=== PATIENT | male | born 1955 | race Two or more races ===

== ENCOUNTER 2016-08-30 16:50 | Inpatient (IN) | payer MEDICAID, OTHER ==
[~2016-08-30] VITALS: Ht 165.1 cm; Wt 68.0 kg
[2016-08-30 17:02] VITALS: BP 134/106
[2016-08-30] MEDS ORDERED: Morphine Sulfate 4mg/ml Inj IVP ONE (17:15)
[2016-08-30] MEDS ORDERED: AMLODIPINE BESY10 MG ORAL (17:25)
[2016-08-30] MEDS ORDERED: ASPIR 8181 MG ORAL (17:26)
[2016-08-30] MEDS ORDERED: BRIMONIDINE TART5 ML BOTH EYES (17:26)
[2016-08-30] MEDS ORDERED: CYCLOSPORINE25 MG PO (17:27)
[2016-08-30] MEDS ORDERED: FERROUS SULFAT325 MG ORAL (17:27)
[2016-08-30] MEDS ORDERED: HUMALOG100 UNIT/3 SUBQ (17:28)
[2016-08-30] MEDS ORDERED: GABAPENTIN300 MG ORAL (17:28)
[2016-08-30] MEDS ORDERED: LANTUS SOL100 UNIT/1 SUBQ (17:29)
[2016-08-30] MEDS ORDERED: NORCO 5-325 TA1 EAC1 ORAL (17:29)
[2016-08-30] MEDS ORDERED: LATANOPROST2.5 ML BOTH EYES (17:30)
[2016-08-30] MEDS ORDERED: MYCOPHENOLATE250 MG PO (17:31)
[2016-08-30] MEDS ORDERED: OMEPRAZOLE20 M2 ORAL (17:31)
[2016-08-30] MEDS ORDERED: POTASSIUM CHLO20 ME2 ORAL (17:32)
[2016-08-30] MEDS ORDERED: PRAVASTATIN SOD10 M1 ORAL (17:33)
[2016-08-30 17:46] LABS: BASOPHILS % (AUTO) 0.3 % (0.0-2.0); EOSINOPHILS % (AUTO) 0.2 % (0.0-3.0); MEAN CORPUSCULAR HEMOGLOBIN 33.4 PG (27.0-31.0); MEAN CORPUSCULAR HGB CONC 37.1 G/DL (32.0-36.0); MEAN CORPUSCULAR VOLUME 90 FL (80-99); MEAN PLATELET VOLUME 6.5 FL (6.5-10.1); MONOCYTES % (AUTO) 7.3 % (1.0-10.0); NEUTROPHILS % (AUTO) 77.2 % (45.0-75.0); PLATELET COUNT 246 K/UL (150-450); RED BLOOD COUNT 3.45 M/UL (4.70-6.10); RED CELL DISTRIBUTION WIDTH 9.1 % (11.6-14.8); WHITE BLOOD COUNT 4.8 K/UL (4.8-10.8)
[2016-08-30] MEDS ORDERED: VITAMIN D1000 UNI1 ORAL (17:49)
[2016-08-30] MEDS ORDERED: PREDNISONE5 M4 PO (17:49)
[2016-08-30] MEDS ORDERED: PAROXETINE HCL20 MG PO (17:50)
[2016-08-30] MEDS ORDERED: QUINAPRIL HCL20 MG PO (17:50)
[2016-08-30] MEDS ORDERED: MURO RIGHT EYE (17:51)
[2016-08-30 17:56] LABS: TROPONIN I < 0.30 ng/mL (<=0.30)
[2016-08-30 18:00] LABS: ALANINE AMINOTRANSFERASE 9 U/L (3-41); ALBUMIN/GLOBULIN RATIO 1.2 (1.0-2.7); ANION GAP 21 (5-15); ASPARTATE AMINO TRANSFERASE 15 U/L (5-40); CALCIUM 8.4 mg/dL (8.6-10.2); CARBON DIOXIDE 19 mEQ/L (20-30); CHLORIDE 68 mEQ/L (98-107); CREATININE 0.9 mg/dL (0.7-1.2); GLOMERULAR FILTRATION RATE > 60 mL/min (>60); HEMOLYSIS 12; LIPASE 39 U/L (< 60); POTASSIUM 3.8 mEQ/L (3.4-4.9)
[2016-08-30 18:03] LABS: SODIUM 108 mEQ/L (135-145)
[2016-08-30] MEDS ORDERED: NaCl 3% 500ml 250 ML IVPB ONE (18:15)
[2016-08-30 18:17] LABS: BILIRUBIN,DIRECT 0.4 mg/dL (0.1-0.3)
[2016-08-30 18:20] LABS: INR 1.1 (0.9-1.1); PROTHROMBIN TIME 10.7 SEC (9.30-11.50)
[2016-08-30 21:00] VITALS: BP 156/84
[2016-08-30] MEDS ORDERED: Ketorolac 30mg Inj IV PRN (21:30)
[2016-08-30] MEDS ORDERED: Mylanta II UD 30ml ORAL PRN (21:30)
[2016-08-30] MEDS ORDERED: Nitroglycerin Subl 0.4mg tab (Bottle Of 25) SL PRN (21:30)
[2016-08-30] MEDS ORDERED: Miralax 17gm pkt ORAL PRN (21:30)
[2016-08-30] MEDS ORDERED: DuoNeb 0.5-3(2.5)mg/3ml neb HHN PRN (21:30)
[2016-08-30] MEDS: Morphine Sulfate 2mg/ml Inj IVP PRN (22:02)
[2016-08-30 22:53] LABS: APPEARANCE,URINE CLEAR; KETONES,URINE NEGATIVE (NEGATIVE); LEUKOCYTE ESTERASE ,URINE NEGATIVE (NEGATIVE); NITRITE,URINE NEGATIVE (NEGATIVE); PH,URINE 7 (4.5-8.0); PROTEIN,URINE NEGATIVE (NEGATIVE); UROBILINOGEN,URINE NORMAL MG/DL (0.0-1.0)
[2016-08-30 23:03] LABS: BACTERIA,URINE FEW /HPF; WBC,URINE 0-2 /HPF (0 - 0)
[2016-08-31] VITALS: BP 150/77
[2016-08-31] MEDS: NovoLOG Insulin Flexpen SUBQ SCH ×4 (06:30→21:32)
--- NOTE | 2016-08-31 07:17 | Emergency Room Report ---
History of Present Illness General Chief Complaint: Nausea, Vomiting, and Diarrhea Source: Patient, EMS Present Illness HPI Patient presents with 4 days of vomiting and diarrhea. He states he is able to take his meds. He denies any hematemesis or coffee-ground. He also denies melena. The diarrhea has been watery. He does have abdominal cramping but it' s not that severe. He more complains about nausea. He also feels weakness. Denies any chest pain, cough, sore throat. There no skin rashes. Denies any extremity pain. The weakness is diffuse. s/p renal transplant 2004. The transplant is not tender. Diabetic. Not know how sugars have been. Allergies: Coded Allergies: No Known Allergies (Unverified , 08/30/16) Patient History Past Medical History: see triage record Past Surgical History: other - renal transplant Social History Narrative Reviewed Nursing Documentation: PMH: Agreed, PSxH: Agreed Nursing Documentation-PMH Past Medical History: No History, Except For Hx Cardiac Problems: Yes Hx Hypertension: Yes Hx Pacemaker: No - BLINDNESS Hx Diabetes: Yes - KIDNEY TRANPLANT Review of Systems All Other Systems: negative except mentioned in HPI Physical Exam Vital Signs Date Time Temp Pulse Resp B/P Pulse Ox O2 Delivery O2 Flow Rate FiO2 08/30/16 16:43 98.8 82 20 183/89 98 Room Air 08/30/16 21:00 2.0 Sp02 EP Interpretation: reviewed, normal General Appearance: well appearing, no apparent distress, GCS 15 Head: normocephalic Eyes: bilateral eye PERRL, bilateral eye normal inspection ENT: moist mucus membranes Neck: supple Respiratory: lungs clear, normal breath sounds Cardiovascular #1: regular rate, rhythm Cardiovascular #2: 1+ radial (R) - possible prior surgery, 2+ radial (L) Gastrointestinal: normal inspection, normal bowel sounds, non tender, no mass, non-distended, other - transplant not tender Musculoskeletal: back normal, gait/station normal, normal range of motion Neurologic: alert, oriented x3, motor strength/tone normal, DTRs symmetric, sensory intact, speech normal Psychiatric: mood/affect normal Skin: warm/dry, other - plethoric Medical Decision Making Diagnostic Impression: Primary Impression: Hyponatremia Additional Impression: Nausea, vomiting, and diarrhea ER Course Patient presents with nausea vomiting and diarrhea. His history of renal transplant. This is a serious and complicated patient. Symptoms are consistent with gastroenteritis, kidney rejection, acute renal failure, C. difficile colitis amongst others. Patient will be evaluated with CBC, electrolytes, EKG, chest x-ray. The patient will be seeing IV hydration and Zofran. Abdomen significant for profound hyponatremia. Renal function is normal. Due to severity of hyponatremia - 3% NS begun. Patient improved with treatment. A urine sodium was sent. Possible etiologies include diarrhea, syndrome of inappropriate ADH secretion lungs others. Admit telemetry Dr. Charles. Laboratory Tests Test 08/30/16 17:00 08/30/16 20:35 08/31/16 06:25 White Blood Count 4.8 K/UL (4.8-10.8) Pending Red Blood Count 3.45 M/UL (4.70-6.10) L Pending Hemoglobin 11.5 G/DL (14.2-18.0) L Pending Hematocrit 31.0 % (42.0-52.0) L Pending Mean Corpuscular Volume 90 FL (80-99) Pending Mean Corpuscular Hemoglobin 33.4 PG (27.0-31.0) H Pending Mean Corpuscular Hemoglobin Concent 37.1 G/DL (32.0-36.0) H Pending Red Cell Distribution Width 9.1 % (11.6-14.8) L Pending Platelet Count 246 K/UL (150-450) Pending Mean Platelet Volume 6.5 FL (6.5-10.1) Pending Neutrophils (%) (Auto) 77.2 % (45.0-75.0) H Pending Lymphocytes (%) (Auto) 15.0 % (20.0-45.0) L Pending Monocytes (%) (Auto) 7.3 % (1.0-10.0) Pending Eosinophils (%) (Auto) 0.2 % (0.0-3.0) Pending Basophils (%) (Auto) 0.3 % (0.0-2.0) Pending Prothrombin Time 10.7 SEC (9.30-11.50) Prothrombin Time INR 1.1 (0.9-1.1) PTT 31 SEC (23-33) Sodium Level 108 mEQ/L (135-145) *L Pending Potassium Level 3.8 mEQ/L (3.4-4.9) Pending Chloride Level 68 mEQ/L (98-107) L Pending Carbon Dioxide Level 19 mEQ/L (20-30) L Pending Anion Gap 21 (5-15) H Blood Urea Nitrogen 15 mg/dL (7-23) Pending Creatinine 0.9 mg/dL (0.7-1.2) Pending Estimate Glomerular Filtration Rate > 60 mL/min (>60) Pending Glucose Level 126 mg/dL (74-106) H Pending Lactic Acid Level 1.50 mmol/L (0.66-2.22) Calcium Level 8.4 mg/dL (8.6-10.2) L Pending Total Bilirubin 1.5 mg/dL (0.0-1.2) H Pending Direct Bilirubin 0.4 mg/dL (0.1-0.3) H Aspartate Amino Transferase (AST) 15 U/L (5-40) Pending Alanine Aminotransferase (ALT) 9 U/L (3-41) Pending Alkaline Phosphatase 59 U/L (40-129) Pending Total Creatine Kinase 238 U/L (38-174) H Troponin I < 0.30 ng/mL (<=0.30) Total Protein 7.0 g/dL (6.6-8.7) Pending Albumin 3.9 g/dL (3.5-5.2) Pending Globulin 3.1 g/dL Pending Albumin/Globulin Ratio 1.2 (1.0-2.7) Lipase 39 U/L (< 60) Urine Color Pale yellow Urine Appearance Clear Urine pH 7 (4.5-8.0) Urine Specific [place] 1.005 (1.005-1.035) Urine Protein Negative (NEGATIVE) Urine Glucose (UA) Negative (NEGATIVE) Urine Ketones Negative (NEGATIVE) Urine Occult Blood 1+ (NEGATIVE) H Urine Nitrite Negative (NEGATIVE) Urine Bilirubin Negative (NEGATIVE) Urine Urobilinogen Normal MG/DL (0.0-1.0) Urine Leukocyte Esterase Negative (NEGATIVE) Urine RBC 2-4 /HPF (0 - 0) H Urine WBC 0-2 /HPF (0 - 0) Urine Squamous Epithelial Cells None /LPF (NONE/OCC) Urine Bacteria Few /HPF (NONE) Hemoglobin A1c Pending Triglycerides Level Pending Cholesterol Level Pending LDL Cholesterol Pending HDL Cholesterol Pending Cholesterol/HDL Ratio Pending Thyroid Stimulating Hormone (TSH) Pending EKG Diagnostic Results Rate: normal Rhythm: NSR ST Segments: no acute changes - prolonged QT Rhythm Strip Diag. Results EP Interpretation: yes Rhythm: NSR, no PVC's, no ectopy Chest X-Ray Diagnostic Results EP Interpretation: Yes Findings: no consolidation, no effusion, no pneumothorax, no acute cardiopulmonary disease Number of Views: 1 Other X-Ray Diagnostic Results Other X-Ray Diagnostic Results : X-Ray Ordered: abd EP Interpretation: Yes Findings: other - no mass, SBO or abnormal calcifications. L hip replacement and clips Number of Views: 2 CT/MRI/US Diagnostic Results CT/MRI/US Diagnostic Results : Imaging Test Ordered: abd pelvis Impression Impression: Distended gallbladder. No definite gallstones or wall thickening. Consider ultrasound for further evaluation if indicated Dilated common bile duct. No definite downstream obstructive lesion. Nonetheless, correlation with liver function tests is recommended, consideration for MRCP if clinically indicated. Right pelvic transplant kidney, unremarkable. Atrophic [place] kidneys with multiple cysts Irregular 12 mm right basilar pulmonary parenchymal opacity, likely an area of scarring but neoplasm not excludable. Recommend followup CT in 6 months Distended bladder Mild cardiomegaly L1 wedge deformity, may be developmental or due to compression fracture of the latter, age indeterminate. Consider MRI this is considered clinically relevant Small to moderate-sized sliding-type hiatal hernia Other findings as noted, including old healed left pelvic fracture deformities, left hip surgical hardware, old healed bilateral rib fractures Last Vital Signs Date Time Temp Pulse Resp B/P Pulse Ox O2 Delivery O2 Flow Rate FiO2 08/31/16 05:44 169/93 08/31/16 04:00 82 08/31/16 00:00 97.2 20 98 Room Air 08/30/16 21:02 2.0 Status: improved Disposition: ADMITTED INPATIENT Condition: Serious Referrals: [facility] (PCP) Mor Aly M.D. Aug 31, 2016 07:17
[2016-08-31 07:32] LABS: BASOPHILS % (AUTO) 0.5 % (0.0-2.0); EOSINOPHILS % (AUTO) 0.8 % (0.0-3.0); LYMPHOCYTES % (AUTO) 14.8 % (20.0-45.0); MEAN CORPUSCULAR HEMOGLOBIN 33.4 PG (27.0-31.0); MEAN CORPUSCULAR HGB CONC 36.7 G/DL (32.0-36.0); MEAN CORPUSCULAR VOLUME 91 FL (80-99); MEAN PLATELET VOLUME 6.8 FL (6.5-10.1); MONOCYTES % (AUTO) 14.1 % (1.0-10.0); NEUTROPHILS % (AUTO) 69.8 % (45.0-75.0); PLATELET COUNT 234 K/UL (150-450); RED BLOOD COUNT 3.25 M/UL (4.70-6.10); RED CELL DISTRIBUTION WIDTH 9.6 % (11.6-14.8); WHITE BLOOD COUNT 4.7 K/UL (4.8-10.8)
[2016-08-31 08:12] LABS: ALANINE AMINOTRANSFERASE 9 U/L (3-41); ALBUMIN/GLOBULIN RATIO 1.1 (1.0-2.7); ASPARTATE AMINO TRANSFERASE 16 U/L (5-40); CALCIUM 8.6 mg/dL (8.6-10.2); CARBON DIOXIDE 23 mEQ/L (20-30); CHLORIDE 74 mEQ/L (98-107); CHOLESTEROL 148 mg/dL (< 200); CHOLESTEROL/HDL RATIO 1.5 (3.3-4.4); CREATININE 0.8 mg/dL (0.7-1.2); GLOMERULAR FILTRATION RATE > 60 mL/min (>60); HEMOLYSIS 6; LDL CHOLESTEROL (CALC.) 34 mg/dL (60-99); POTASSIUM 3.1 mEQ/L (3.4-4.9); TOTAL PROTEIN 6.8 g/dL (6.6-8.7)
[2016-08-31 08:19] LABS: ANION GAP 18 (5-15)
[2016-08-31 08:23] LABS: SODIUM 115 mEQ/L (135-145)
[2016-08-31 08:35] LABS: BILIRUBIN,DIRECT 0.3 mg/dL (0.1-0.3)
--- NOTE | 2016-08-31 08:54 | Diagnostic Imaging Report ---
Clinical Indication: Abdominal pain, nausea, vomiting Technique: Only small initial bolus of oral contrast given, per emergency room physician request. IV administration nonionic contrast. Venous phase spiral acquisition obtained through the abdomen and pelvis. Multiplanar reconstructions were generated. Total dose length product 1002 mGycm. CTDIvol(s) 18 mGy Comparison: None Findings: There is a right pelvic transplant kidney. No evidence of hydronephrosis or focal abnormality demonstrated. Bilateral [place] kidneys are atrophic and demonstrate multiple cysts. The bladder is distended The gallbladder is distended. No definite gallstones, gallbladder wall thickening, or pericholecystic fluid. The common bile duct is dilated, measuring 15 millimeters in diameter. Minimal if any intrahepatic biliary ductal dilatation. The liver, pancreas, spleen, adrenals are unremarkable. No retroperitoneal or mesenteric mass or adenopathy. No pelvic mass or adenopathy. There is atrophy of the rectus abdominis musculature on the right. There is a small to moderate-sized sliding-type hiatal hernia. Stomach, duodenum are unremarkable. No small bowel distention or small bowel wall thickening. The appendix is normal. There is no evidence of diverticulosis or diverticulitis. The included lung bases demonstrate some scarring or atelectasis. There is an irregular opacity at the right lung base which measures 12 mm in diameter. The heart is mildly enlarged. The bones demonstrate old healed bilateral rib fracture deformities. There is left hip surgical hardware. There are old healed left pelvic fracture deformities. There is a wedge deformity of the L1 vertebral body, without anterior cortical buckling. Uncertain as whether developmental or acquired. Impression: Distended gallbladder. No definite gallstones or wall thickening. Consider ultrasound for further evaluation if indicated Dilated common bile duct. No definite downstream obstructive lesion. Nonetheless, correlation with liver function tests is recommended, consideration for MRCP if clinically indicated. Right pelvic transplant kidney, unremarkable. Atrophic [place] kidneys with multiple cysts Irregular 12 mm right basilar pulmonary parenchymal opacity, likely an area of scarring but neoplasm not excludable. Recommend followup CT in 6 months Distended bladder Mild cardiomegaly L1 wedge deformity, may be developmental or due to compression fracture of the latter, age indeterminate. Consider MRI this is considered clinically relevant Small to moderate-sized sliding-type hiatal hernia Other findings as noted, including old healed left pelvic fracture deformities, left hip surgical hardware, old healed bilateral rib fractures This agrees with the preliminary interpretation provided overnight by Dr. Franco The CT scanner at [facility] is accredited by the [employer] and the scans are performed using protocols designed to limit radiation exposure to as low as reasonably achievable to attain images of sufficient resolution adequate for diagnostic evaluation.
[2016-08-31] MEDS: Heparin 5000 units/ml inj SUBQ SCH ×2 (09:11→21:31)
[2016-08-31] MEDS: Mycophenolate 250mg cap ORAL SCH ×2 (09:11→17:45)
[2016-08-31] MEDS ORDERED: NaCl 3% 500ml 500 ML IV ONE ×3 (09:30→20:00)
[2016-08-31] MEDS ORDERED: Norco 5mg/325mg tab ORAL PRN (09:45)
[2016-08-31] MEDS ORDERED: PredniSONE 5mg tab ORAL SCH (09:45)
--- NOTE | 2016-08-31 09:46 | Consultation ---
Consult Note Consult Note Chief Complaint: Nausea, Vomiting, and Diarrhea Patient presents with 4 days of vomiting and diarrhea. He states he is able to take his meds. s/p renal transplant 2004. The transplant is not tender. Diabetic. No Known Allergies (Unverified , 08/30/16) Hx Cardiac Problems: Yes Hx Hypertension: Yes Hx Pacemaker: No - BLINDNESS Hx Diabetes: Yes - KIDNEY TRANPLANT Assessment/Plan HypoNatremia likely depletional due to vomiting DM HTN s/p Kidney Transplant Anemia Plan: Saline infusion- IV protonix Continue antirejection meds anemia hu per orders MILLY PENA Aug 31, 2016 09:46
[2016-08-31 10:02] VITALS: BP 146/53
[2016-08-31] MEDS: Metoprolol Tartrate 12.5mg TAB ORAL SCH ×2 (10:22→21:30)
[2016-08-31] MEDS: Pantoprazole Inj IVP SCH ×2 (10:23→21:26)
--- NOTE | 2016-08-31 11:22 | Diagnostic Imaging Report ---
Indication: ABD PAIN Technique: Supine view of the abdomen Comparison: none Findings: Ingested contrast for subsequent CT scan is seen within the stomach ingested contrast from recent CT scan is seen in stomach and small bowel. Bowel gas pattern is unremarkable. Contrast is seen within the collecting system of the right pelvic transplant kidney. Left hip surgical hardware is demonstrated. Impression: No acute process. Findings as noted
[2016-08-31] MEDS: cycloSPORINE 25mg cap ORAL SCH ×2 (11:32→17:45)
[2016-08-31 12:00] VITALS: BP 136/56
[2016-08-31] MEDS: Brimonidine 0.2% Opth Sol BOTH EYES SCH ×2 (12:27→17:42)
--- NOTE | 2016-08-31 12:28 | Diagnostic Imaging Report ---
Indication: Abdominal pain Technique: One view of the chest Comparison: none Findings: Lungs and pleural spaces are clear. There is some atelectasis at the left lung base. Heart size is normal. Impression: No acute process
--- NOTE | 2016-08-31 15:05 | History and Physical ---
History of Present Illness General Date patient seen: Aug 31, 2016 Reason for Hospitalization: Nausea, Vomiting, and Diarrhea Present Illness HPI 61 year old male with hx of DM, HTN, s/p Kidney Transplant 2004, Anemia presented to [facility] er with CC of Nausea and vomiting. He was found to have severe hyponatremia and admitted for further evaluation. Allergies: Coded Allergies: No Known Allergies (Unverified , 08/30/16) Medication History Scheduled Amlodipine Besylate* (Amlodipine Besylate*), 10 MG ORAL DAILY, (Reported) Aspirin* (Aspir 81*), 81 MG ORAL DAILY, (Reported) Brimonidine Tartrate* (Alphagan*), 1 DROP BOTH EYES TID, (Reported) Cholecalciferol (Vitamin D3)* (Vitamin D*), 2,000 UNITS ORAL DAILY, (Reported) Cyclosporine (Cyclosporine), 50 MG PO TWICE A DAY, (Reported) Ferrous Sulfate* (Ferrous Sulfate*), 325 MG ORAL THREE TIMES A DAY, (Reported) Gabapentin* (Gabapentin*), 300 MG ORAL THREE TIMES A DAY, (Reported) Insulin Glargine (Lantus), 12 SUBQ BEDTIME, (Reported) Latanoprost* (Xalatan*), 1 DROP BOTH EYES BEDTIME, (Reported) Mycophenolate Mofetil (Mycophenolate Mofetil), 500 MG PO TWICE A DAY, (Reported) Omeprazole (Omeprazole), 20 MG ORAL DAILY, (Reported) Paroxetine Hcl* (Paxil*), 20 MG PO DAILY, (Reported) Potassium Chloride (Potassium Chloride), 20 MEQ ORAL TWICE A DAY, (Reported) Pravastatin Sod (Pravastatin Sod), 10 MG ORAL DAILY, (Reported) Prednisone (Prednisone), 5 MG PO DAILY, (Reported) Quinapril Hcl (Quinapril Hcl), 20 MG PO DAILY, (Reported) Sodium Chloride 5 % (Sodium Chloride), 1 DROP RIGHT EYE TWICE A DAY, (Reported) Scheduled PRN Hydrocodone Bit/Acetaminophen 5-325* ([place] 5-325 Tablet*), 1 TAB ORAL Q4H PRN for For Pain, (Reported) Miscellaneous Medications Insulin Lispro (Humalog), 0 SUBQ, (Reported) Patient History Healthcare decision maker Resuscitation status Full Code Advanced Directive on File Past Medical/Surgical History Past Medical/Surgical History: (1) Transplanted kidney (2) Hyponatremia Review of Systems All Other Systems: negative except mentioned in HPI Physical Exam General Appearance: WD/WN, no apparent distress Lines, tubes and drains: peripheral, central line HEENT: normocephalic, atraumatic Neck: non-tender Respiratory/Chest: chest wall non-tender Cardiovascular/Chest: normal peripheral pulses, normal rate Abdomen: normal bowel sounds, non tender Last 24 Hour Vital Signs Date Time Temp Pulse Resp B/P Pulse Ox O2 Delivery O2 Flow Rate FiO2 08/31/16 12:00 96.9 81 18 136/56 98 Room Air 08/31/16 10:22 78 146/53 08/31/16 10:02 96.1 78 17 146/53 98 Room Air 08/31/16 09:12 78 146/53 08/31/16 07:51 76 08/31/16 05:44 169/93 08/31/16 04:00 82 08/31/16 00:00 97.2 85 20 150/77 98 Room Air 08/31/16 00:00 81 08/30/16 21:50 155/93 08/30/16 21:02 98.7 86 19 156/84 98 Room Air 2.0 08/30/16 21:00 98.7 86 19 156/84 98 Room Air 2.0 08/30/16 17:50 98.7 08/30/16 17:02 98.8 20 134/106 98 Room Air 08/30/16 16:43 98.8 82 20 183/89 98 Room Air Intake and Output 08/30/16 08/31/16 19:00 07:00 Intake Total 1000 ml 30 ml Output Total 600 ml Balance 1000 ml -570 ml IV Total 1000 ml 30 ml Output Urine Total 500 ml Emesis 100 ml # Voids 3 Laboratory Tests Test 08/30/16 17:00 08/30/16 20:35 08/31/16 06:25 08/31/16 11:30 White Blood Count 4.8 K/UL (4.8-10.8) 4.7 K/UL (4.8-10.8) L Red Blood Count 3.45 M/UL (4.70-6.10) L 3.25 M/UL (4.70-6.10) L Hemoglobin 11.5 G/DL (14.2-18.0) L 10.9 G/DL (14.2-18.0) L Hematocrit 31.0 % (42.0-52.0) L 29.6 % (42.0-52.0) L Mean Corpuscular Volume 90 FL (80-99) 91 FL (80-99) Mean Corpuscular Hemoglobin 33.4 PG (27.0-31.0) H 33.4 PG (27.0-31.0) H Mean Corpuscular Hemoglobin Concent 37.1 G/DL (32.0-36.0) H 36.7 G/DL (32.0-36.0) H Red Cell Distribution Width 9.1 % (11.6-14.8) L 9.6 % (11.6-14.8) L Platelet Count 246 K/UL (150-450) 234 K/UL (150-450) Mean Platelet Volume 6.5 FL (6.5-10.1) 6.8 FL (6.5-10.1) Neutrophils (%) (Auto) 77.2 % (45.0-75.0) H 69.8 % (45.0-75.0) Lymphocytes (%) (Auto) 15.0 % (20.0-45.0) L 14.8 % (20.0-45.0) L Monocytes (%) (Auto) 7.3 % (1.0-10.0) 14.1 % (1.0-10.0) H Eosinophils (%) (Auto) 0.2 % (0.0-3.0) 0.8 % (0.0-3.0) Basophils (%) (Auto) 0.3 % (0.0-2.0) 0.5 % (0.0-2.0) Prothrombin Time 10.7 SEC (9.30-11.50) Prothromb Time International Ratio 1.1 (0.9-1.1) Activated Partial Thromboplast Time 31 SEC (23-33) Sodium Level 108 mEQ/L (135-145) *L 115 mEQ/L (135-145) *L Potassium Level 3.8 mEQ/L (3.4-4.9) 3.1 mEQ/L (3.4-4.9) L Chloride Level 68 mEQ/L (98-107) L 74 mEQ/L (98-107) L Carbon Dioxide Level 19 mEQ/L (20-30) L 23 mEQ/L (20-30) Anion Gap 21 (5-15) H 18 (5-15) H Blood Urea Nitrogen 15 mg/dL (7-23) 14 mg/dL (7-23) Creatinine 0.9 mg/dL (0.7-1.2) 0.8 mg/dL (0.7-1.2) Estimat Glomerular Filtration Rate > 60 mL/min (>60) > 60 mL/min (>60) Glucose Level 126 mg/dL (74-106) H 106 mg/dL (74-106) Lactic Acid Level 1.50 mmol/L (0.66-2.22) Calcium Level 8.4 mg/dL (8.6-10.2) L 8.6 mg/dL (8.6-10.2) Total Bilirubin 1.5 mg/dL (0.0-1.2) H 1.3 mg/dL (0.0-1.2) H Direct Bilirubin 0.4 mg/dL (0.1-0.3) H 0.3 mg/dL (0.1-0.3) Aspartate Amino Transf (AST/SGOT) 15 U/L (5-40) 16 U/L (5-40) Alanine Aminotransferase (ALT/SGPT) 9 U/L (3-41) 9 U/L (3-41) Alkaline Phosphatase 59 U/L (40-129) 56 U/L (40-129) Total Creatine Kinase 238 U/L (38-174) H Troponin I < 0.30 ng/mL (<=0.30) Total Protein 7.0 g/dL (6.6-8.7) 6.8 g/dL (6.6-8.7) Albumin 3.9 g/dL (3.5-5.2) 3.7 g/dL (3.5-5.2) Globulin 3.1 g/dL 3.1 g/dL Albumin/Globulin Ratio 1.2 (1.0-2.7) 1.1 (1.0-2.7) Lipase 39 U/L (< 60) Urine Color Pale yellow Urine Appearance Clear Urine pH 7 (4.5-8.0) Urine Specific [place] 1.005 (1.005-1.035) Urine Protein Negative (NEGATIVE) Urine Glucose (UA) Negative (NEGATIVE) Urine Ketones Negative (NEGATIVE) Urine Occult Blood 1+ (NEGATIVE) H Urine Nitrite Negative (NEGATIVE) Urine Bilirubin Negative (NEGATIVE) Urine Urobilinogen Normal MG/DL (0.0-1.0) Urine Leukocyte Esterase Negative (NEGATIVE) Urine RBC 2-4 /HPF (0 - 0) H Urine WBC 0-2 /HPF (0 - 0) Urine Squamous Epithelial Cells None /LPF (NONE/OCC) Urine Bacteria Few /HPF (NONE) Hemoglobin A1c 6.0 % (< 6.0) Plasma/Serum Osmolality Pending Uric Acid 3.7 mg/dL (3.0-7.5) Triglycerides Level 80 mg/dL (< 150) Cholesterol Level 148 mg/dL (< 200) LDL Cholesterol 34 mg/dL (60-99) L HDL Cholesterol 98 mg/dL (> 60) H Cholesterol/HDL Ratio 1.5 (3.3-4.4) L Thyroid Stimulating Hormone (TSH) 1.660 uIU/mL (0.300-4.500) Cortisol Pending Urine Random Sodium 37 mmol/L Height (Feet): 5 Height (Inches): 5.00 Weight (Pounds): 150 Medications Current Medications Medications (Trade) Dose Ordered Sig/Brian Route PRN Reason Start Time Stop Time Status Last Admin Dose Admin Acetaminophen (Tylenol) 650 mg Q4H PRN ORAL T>100.5 08/30/16 21:30 09/29/16 21:29 Acetaminophen/ Hydrocodone Bitart ([place] 5/325) 1 tab Q4H PRN ORAL For Pain 08/31/16 09:45 09/07/16 09:44 Albuterol/ Ipratropium (DuoNeb 0.5-3(2.5)mg/3ml) 3 ml Q4H PRN HHN Shortness of Breath 08/30/16 21:30 09/04/16 21:29 Amlodipine Besylate (Norvasc) 10 mg DAILY ORAL 08/31/16 09:00 09/30/16 08:59 08/31/16 09:12 Aspirin (Ecotrin) 81 mg DAILY ORAL 09/01/16 09:00 10/01/16 08:59 Brimonidine Tartrate (Alphagan) 1 drop TID BOTH EYES 08/31/16 13:00 09/30/16 12:59 08/31/16 12:27 Clonidine HCl (Catapres) 0.1 mg Q4H PRN ORAL SBP>160 08/30/16 21:30 09/29/16 21:29 08/31/16 05:44 Cyclosporine (Neoral) 25 mg BID ORAL 08/31/16 09:45 09/30/16 09:44 08/31/16 11:32 Dextrose (Dextrose 50%) STAT PRN IV Hypoglycemia 08/30/16 21:30 09/29/16 21:29 Gabapentin (Neurontin) 300 mg THREE TIMES A DAY ORAL 08/31/16 13:00 09/30/16 12:59 08/31/16 12:27 Heparin Sodium (Porcine) (Heparin 5000 units/ml) 5,000 units EVERY 12 HOURS SUBQ 08/31/16 09:00 09/30/16 08:59 08/31/16 09:11 Insulin Aspart (NovoLOG) BEFORE MEALS AND HS SUBQ 08/31/16 06:30 09/30/16 06:29 08/31/16 12:27 Latanoprost (Xalatan) 1 drop BEDTIME BOTH EYES 08/31/16 21:00 09/30/16 20:59 Metoprolol Tartrate 12.5 mg 12.5 mg Q12HR ORAL 08/31/16 10:00 09/30/16 09:59 08/31/16 10:22 Morphine Sulfate (Morphine Sulfate) 2 mg Q4H PRN IVP Severe Pain (Pain Scale 7-10) 08/30/16 21:30 09/06/16 21:29 08/30/16 22:02 Mycophenolate Mofetil (Cellcept) 500 mg TWICE A DAY ORAL 08/31/16 09:00 09/30/16 08:59 08/31/16 09:11 Nitroglycerin (Ntg) 0.4 mg Q5M X 3 DOSES PRN SL Prn Chest Pain 08/30/16 21:30 09/29/16 21:29 08/30/16 21:50 Ondansetron HCl (Zofran) 4 mg Q6H PRN IVP Nausea & Vomiting 08/30/16 21:30 09/29/16 21:29 08/31/16 05:46 Pantoprazole (Protonix) 40 mg EVERY 12 HOURS IVP 08/31/16 09:45 09/30/16 09:44 08/31/16 10:23 Paroxetine HCl (Paxil) 20 mg DAILY ORAL 09/01/16 09:00 10/01/16 08:59 Polyethylene Glycol (Miralax) 17 gm HSPRN PRN ORAL Constipation 08/30/16 21:30 09/29/16 21:29 Pravastatin Sodium (Pravachol) 10 mg DAILY ORAL 09/01/16 09:00 10/01/16 08:59 Prednisone (predniSONE) 5 mg DAILY ORAL 08/31/16 09:45 09/30/16 09:44 08/31/16 10:22 Sodium Chloride 500 ml @ 50 mls/hr ONCE ONCE IV 08/31/16 10:00 08/31/16 19:59 08/31/16 10:22 Sodium Chloride (Hypertonic Saline) 500 ml @ 50 mls/hr ONCE ONCE IV 08/31/16 20:00 09/01/16 05:59 Temazepam (Restoril) 15 mg HSPRN PRN ORAL Insomnia 08/30/16 21:30 09/06/16 21:29 Vitamin D (Vitamin D) 1,000 intlu DAILY ORAL 09/01/16 09:00 10/01/16 08:59 Assessment/Plan Problem List: (1) Hyponatremia ICD Codes: E87.1 - Hypo-osmolality and hyponatremia SNOMED: 40710476 (2) Nausea, vomiting, and diarrhea ICD Codes: R11.2 - Nausea with vomiting, unspecified; R19.7 - Diarrhea, unspecified SNOMED: 5499563 (3) Transplanted kidney ICD Codes: Z94.0 - Kidney transplant status SNOMED: 03496262, [id number] Assessment/Plan 3% sailing check electrolytes Renal evaluation LIVIER MULLINS Aug 31, 2016 15:05
[2016-08-31 16:00] VITALS: BP 140/74
[2016-08-31 20:00] VITALS: BP 147/71
--- NOTE | 2016-08-31 21:18 | Consultation ---
DATE OF CONSULTATION: 08/31/2016 ENDOCRINOLOGY CONSULTATION: CONSULTING PHYSICIAN: Siva Toussaint M.D. REFERRING PHYSICIAN: Lynn Charles M.D. REASON FOR CONSULTATION: Diabetes management and hyponatremia. HISTORY OF PRESENT ILLNESS: The patient is a 61-year-old male with a history of renal transplant who presented to the [facility] with nausea and vomiting for four or five days, unable to take his medication. His blood sugar was out of range, he was noted for severe hyponatremia. HOME MEDICATIONS: 1. Amlodipine 2. Aspirin. 3. Alphagan. 4. Vitamin D3. 5. Clyclosporin 7. Gabapentin. 8. Rumely. 9. Lantus 12 units at bedtime. 10. Humalog sliding scale. 11. Latanoprost 12. Omeprazole. 14. Prilosec. 15. Prednisone 5 mg. 16. Quinapril. PAST MEDICAL HISTORY: 1. Diabetes. 2. Renal transplant. 3. Hypertension. 4. Glaucoma. PAST SURGICAL HISTORY: Renal transplantation. FAMILY HISTORY: Noncontributory. SOCIAL HISTORY: No smoking, alcohol, or drugs. REVIEW OF SYSTEMS: As per HPI. PHYSICAL EXAMINATION: GENERAL: The patient is drowsy. VITAL SIGNS: Blood pressure 169/83, pulse 72, temperature is 97.2 degrees, and respiratory rate of 20. HEENT: Pupils are equal and reactive to light. Sclerae are anicteric. NECK: No JVD. HEART: Regular. LUNGS: Decreased breath sounds. ABDOMEN: Positive bowel sounds. EXTREMITIES: Trace edema. LABORATORY VALUES: Sodium 128, potassium 3.8, chloride 68, bicarb 19, BUN 21, creatinine 0.9, and glucose of 126, calcium 8.4, and CK 125. WBC 12.7, hemoglobin 12.9, hematocrit 29.6, and platelet count of 234,000. DIAGNOSES: 1. Severe profound hyponatremia. 2. Severe nausea and vomiting. 3. Diabetes. 4. Status post renal transplant PLAN: 1. We will hold off on basal insulin for now. sliding scale insulin has been ordered. 2. TSH level is sent and is pending. 3. Will check cortisol level although the patient is already on Prednisone. 4. I will follow the results and further advise Thank you Dr. Charles, for the courtesy of this consultation. Siva Toussaint M.D. DR: SÁNCHEZ JOB#: [id number] CC: AMBER
[2016-08-31] MEDS: Morphine Sulfate 2mg/ml Inj IVP PRN (22:43)
[2016-09-01] VITALS: BP 144/72
--- NOTE | 2016-09-01 03:01 | Cardiology Report ---
APPROVED REPORT EKG Measurement Heart [id number] 180P30 [id number] Normal sinus rhythm Prolonged QT Abnormal ECG
[2016-09-01 04:27] VITALS: BP 160/79
[2016-09-01 04:53] VITALS: BP 150/79
[2016-09-01] MEDS ORDERED: Morphine Sulfate 2mg/ml Inj IVP PRN (05:30)
[2016-09-01] MEDS ORDERED: Nitroglycerin Subl 0.4mg tab (Bottle Of 25) SL PRN (05:30)
[2016-09-01] MEDS ORDERED: DuoNeb 0.5-3(2.5)mg/3ml neb HHN PRN (05:30)
[2016-09-01] MEDS ORDERED: Norco 5mg/325mg tab ORAL PRN (05:45)
[2016-09-01] MEDS ORDERED: Miralax 17gm pkt ORAL PRN (05:47)
[2016-09-01] MEDS: NovoLOG Insulin Flexpen SUBQ SCH ×2 (06:30→12:02)
[2016-09-01 07:18] LABS: BASOPHILS % (AUTO) 0.5 % (0.0-2.0); EOSINOPHILS % (AUTO) 1.1 % (0.0-3.0); LYMPHOCYTES % (AUTO) 11.7 % (20.0-45.0); MEAN CORPUSCULAR HEMOGLOBIN 33.7 PG (27.0-31.0); MEAN CORPUSCULAR HGB CONC 35.5 G/DL (32.0-36.0); MEAN CORPUSCULAR VOLUME 95 FL (80-99); MEAN PLATELET VOLUME 6.7 FL (6.5-10.1); MONOCYTES % (AUTO) 11.4 % (1.0-10.0); NEUTROPHILS % (AUTO) 75.3 % (45.0-75.0); PLATELET COUNT 246 K/UL (150-450); RED BLOOD COUNT 3.37 M/UL (4.70-6.10); RED CELL DISTRIBUTION WIDTH 10.1 % (11.6-14.8); WHITE BLOOD COUNT 4.3 K/UL (4.8-10.8)
[2016-09-01 07:31] LABS: HEMOLYSIS 5; IRON 91 ug/dL (59-158); TOTAL IRON BINDING CAPACITY 167 ug/dL (250-400)
[2016-09-01 07:32] LABS: ALANINE AMINOTRANSFERASE 11 U/L (3-41); ALBUMIN/GLOBULIN RATIO 1.1 (1.0-2.7); ANION GAP 17 (5-15); ASPARTATE AMINO TRANSFERASE 16 U/L (5-40); CARBON DIOXIDE 25 mEQ/L (20-30); CHLORIDE 95 mEQ/L (98-107); CRP QUANT 0.5 mg/dL (< 0.5); GLOMERULAR FILTRATION RATE > 60 mL/min (>60); MAGNESIUM 2.1 mg/dL (1.7-2.5); PHOSPHORUS 3.4 mg/dL (2.5-4.8); POTASSIUM 3.6 mEQ/L (3.4-4.9); SODIUM 137 mEQ/L (135-145); TOTAL PROTEIN 6.7 g/dL (6.6-8.7)
[2016-09-01 07:47] LABS: FERRITIN 1291 ng/mL (10-230)
[2016-09-01 08:00] VITALS: BP 149/74
[2016-09-01] MEDS ORDERED: Aspirin EC 81mg tab ORAL SCH ×2 (09:00)
[2016-09-01] MEDS ORDERED: cycloSPORINE 25mg cap ORAL SCH (09:00)
[2016-09-01] MEDS ORDERED: PARoxetine 20mg tab ORAL SCH (09:00)
[2016-09-01] MEDS ORDERED: Metoprolol Tartrate 12.5mg TAB ORAL SCH (09:00)
[2016-09-01] MEDS ORDERED: Vitamin D 1000 IU Tab ORAL SCH ×2 (09:00)
[2016-09-01] MEDS ORDERED: PredniSONE 5mg tab ORAL SCH (09:00)
[2016-09-01] MEDS ORDERED: Mycophenolate 250mg cap ORAL SCH (09:00)
[2016-09-01] MEDS: PARoxetine 20mg tab ORAL SCH ×2 (09:00→09:04)
[2016-09-01] MEDS ORDERED: Pantoprazole Inj IVP SCH (09:00)
[2016-09-01] MEDS ORDERED: Heparin 5000 units/ml inj SUBQ SCH (09:00)
--- NOTE | 2016-09-01 09:04 | General Progress Note ---
Assessment/Plan Problem List: (1) Diabetes mellitus ICD Codes: E11.9 - Type 2 diabetes mellitus without complications SNOMED: 70396163 (2) Nausea, vomiting, and diarrhea ICD Codes: R11.2 - Nausea with vomiting, unspecified; R19.7 - Diarrhea, unspecified SNOMED: 8719275 (3) Hyponatremia ICD Codes: E87.1 - Hypo-osmolality and hyponatremia SNOMED: 34903334 (4) Transplanted kidney ICD Codes: Z94.0 - Kidney transplant status SNOMED: 72657655, 821575681 Assessment/Plan hyponatremia corrected glucose values are stable w/o basal insulin continue Novolog sliding scale ac/hs Subjective Allergies: Coded Allergies: No Known Allergies (Unverified , 08/30/16) All Systems: reviewed and negative except above Subjective he is feeling much better denies N/V wants to go home Objective Last 24 Hour Vital Signs Date Time Temp Pulse Resp B/P Pulse Ox O2 Delivery O2 Flow Rate FiO2 09/01/16 04:53 78 20 150/79 96 Room Air 09/01/16 04:27 97.0 71 20 160/79 99 Nasal Cannula 2.0 09/01/16 04:00 78 09/01/16 00:00 98.0 60 20 144/72 96 Nasal Cannula 2.0 09/01/16 00:00 64 08/31/16 21:30 65 139/68 08/31/16 20:23 65 14 Room Air 08/31/16 20:00 97.0 65 18 147/71 98 Room Air 08/31/16 20:00 64 08/31/16 16:00 97.0 65 18 140/74 97 Room Air 18.0 08/31/16 16:00 62 08/31/16 13:30 61 08/31/16 12:00 96.9 81 18 136/56 98 Room Air 08/31/16 10:22 78 146/53 08/31/16 10:02 96.1 78 17 146/53 98 Room Air 08/31/16 09:12 78 146/53 Intake and Output 08/31/16 09/01/16 19:00 07:00 Intake Total 1500 ml 620 ml Output Total 640 ml 500 ml Balance 860 ml 120 ml Intake Oral 1100 ml 120 ml IV Total 400 ml 500 ml Output Urine Total 640 ml 500 ml # Voids 7 1 Laboratory Tests 08/31/16 11:30: Urine Random Sodium 37 09/01/16 06:40: White Blood Count 4.3L, Red Blood Count 3.37L, Hemoglobin 11.3L, Hematocrit 31.9L, Mean Corpuscular Volume 95, Mean Corpuscular Hemoglobin 33.7H, Mean Corpuscular Hemoglobin Concent 35.5, Red Cell Distribution Width 10.1L, Platelet Count 246, Mean Platelet Volume 6.7, Neutrophils (%) (Auto) 75.3H, Lymphocytes (%) (Auto) 11.7L, Monocytes (%) (Auto) 11.4H, Eosinophils (%) (Auto ) 1.1, Basophils (%) (Auto) 0.5, Sodium Level 137, Potassium Level 3.6, Chloride Level 95L, Carbon Dioxide Level 25, Anion Gap 17H, Blood Urea Nitrogen 16, Creatinine 1.0, Estimat Glomerular Filtration Rate > 60, Glucose Level 114H , Uric Acid 5.0, Calcium Level 9.0, Phosphorus Level 3.4, Magnesium Level 2.1, Iron Level 91, Total Iron Binding Capacity 167L, Percent Iron Saturation 54H, Unsaturated Iron Binding 76L, Ferritin 1291H, Total Bilirubin 1.0, Gamma Glutamyl Transpeptidase 23, Aspartate Amino Transf (AST/SGOT) 16, Alanine Aminotransferase (ALT/SGPT) 11, Alkaline Phosphatase 59, Total Creatine Kinase 241H, C-Reactive Protein, Quantitative 0.5, Pro-B-Type Natriuretic Peptide 834H , Total Protein 6.7, Albumin 3.6, Globulin 3.1, Albumin/Globulin Ratio 1.1, Vitamin B12 Level 401, Folate [Pending] Height (Feet): 5 Height (Inches): 5.00 Weight (Pounds): 150 General Appearance: no apparent distress EENT: pale conjunctivae Neck: normal alignment Cardiovascular: normal peripheral pulses Respiratory/Chest: decreased breath sounds Abdomen: normal bowel sounds Edema: no edema noted Arm (L), no edema noted Arm (R), no edema noted Leg (L), no edema noted Leg (R), no edema noted Pedal (L), no edema noted Pedal (R), no edema noted Generalized Objective Current Medications Medications (Trade) Dose Ordered Sig/Brian Route PRN Reason Start Time Stop Time Status Last Admin Dose Admin Acetaminophen (Tylenol) 650 mg Q4H PRN ORAL T>100.5 09/01/16 05:30 10/01/16 05:29 Acetaminophen/ Hydrocodone Bitart ([place] 5/325) 1 tab Q4H PRN ORAL For Pain 09/01/16 05:45 09/08/16 05:44 09/01/16 07:09 Albuterol/ Ipratropium (DuoNeb 0.5-3(2.5)mg/3ml) 3 ml Q4H PRN HHN Shortness of Breath 09/01/16 05:30 09/06/16 05:29 Amlodipine Besylate (Norvasc) 10 mg DAILY ORAL 09/01/16 09:00 10/01/16 08:59 Aspirin (Ecotrin) 81 mg DAILY ORAL 09/01/16 09:00 10/01/16 08:59 Brimonidine Tartrate (Alphagan) 1 drop TID BOTH EYES 09/01/16 09:00 10/01/16 08:59 Clonidine HCl (Catapres) 0.1 mg Q4H PRN ORAL SBP>160 09/01/16 05:30 10/01/16 05:29 Cyclosporine (Neoral) 25 mg BID ORAL 09/01/16 09:00 10/01/16 08:59 Dextrose (Dextrose 50%) STAT PRN IV Hypoglycemia 09/01/16 05:43 10/01/16 05:42 Gabapentin (Neurontin) 300 mg THREE TIMES A DAY ORAL 09/01/16 09:00 10/01/16 08:59 Heparin Sodium (Porcine) (Heparin 5000 units/ml) 5,000 units EVERY 12 HOURS SUBQ 09/01/16 09:00 10/01/16 08:59 Insulin Aspart (NovoLOG) BEFORE MEALS AND HS SUBQ 09/01/16 06:30 10/01/16 06:29 Latanoprost (Xalatan) 1 drop BEDTIME BOTH EYES 09/01/16 21:00 10/01/16 20:59 Metoprolol Tartrate (Lopressor) 12.5 mg Q12HR ORAL 09/01/16 09:00 10/01/16 08:59 Morphine Sulfate (Morphine Sulfate) 2 mg Q4H PRN IVP Severe Pain (Pain Scale 7-10) 09/01/16 05:30 09/08/16 05:29 Mycophenolate Mofetil (Cellcept) 500 mg TWICE A DAY ORAL 09/01/16 09:00 10/01/16 08:59 Nitroglycerin (Ntg) 0.4 mg Q5M X 3 DOSES PRN SL Prn Chest Pain 09/01/16 05:30 10/01/16 05:29 Ondansetron HCl (Zofran) 4 mg Q6H PRN IVP Nausea & Vomiting 09/01/16 05:46 10/01/16 05:45 09/01/16 07:08 Pantoprazole (Protonix) 40 mg EVERY 12 HOURS IVP 09/01/16 09:00 10/01/16 08:59 Paroxetine HCl (Paxil) 20 mg DAILY ORAL 09/01/16 09:00 10/01/16 08:59 Polyethylene Glycol (Miralax) 17 gm HSPRN PRN ORAL Constipation 09/01/16 05:47 10/01/16 05:46 Pravastatin Sodium (Pravachol) 10 mg DAILY ORAL 09/01/16 09:00 10/01/16 08:59 Prednisone (predniSONE) 5 mg DAILY ORAL 09/01/16 09:00 10/01/16 08:59 Temazepam (Restoril) 15 mg HSPRN PRN ORAL Insomnia 09/01/16 05:42 09/08/16 05:41 Vitamin D (Vitamin D) 1,000 intlu DAILY ORAL 09/01/16 09:00 10/01/16 08:59 Item Value Date Time Bedside Blood Glucose 108 mg/dl 09/01/16 0630 Bedside Blood Glucose 138 mg/dl H 08/31/16 2132 Bedside Blood Glucose 95 mg/dl 08/31/16 1630 Bedside Blood Glucose 129 mg/dl H 08/31/16 1227 Bedside Blood Glucose 102 mg/dl 08/31/16 0630 DEAN GALLEGOS Sep 01, 2016 09:04
[2016-09-01] MEDS: Brimonidine 0.2% Opth Sol BOTH EYES SCH ×2 (09:11→13:48)
[2016-09-01 12:18] VITALS: BP 155/76
--- NOTE | 2016-09-01 12:22 | General Progress Note ---
Assessment/Plan Status: stable Status Narrative Na now 137 Assessment/Plan HypoNatremia likely depletional due to vomiting DM HTN s/p Kidney Transplant Anemia Plan: Saline infusion done- Na corrected IV protonix Continue antirejection meds anemia hu adjust bp meds- per orders Subjective ROS Limited/Unobtainable: No Constitutional: Reports: malaise, other - dizziness, weakness Allergies: Coded Allergies: No Known Allergies (Unverified , 08/30/16) Objective Last 24 Hour Vital Signs Date Time Temp Pulse Resp B/P Pulse Ox O2 Delivery O2 Flow Rate FiO2 09/01/16 09:04 78 150/79 09/01/16 09:04 78 150/79 09/01/16 08:00 97.2 68 16 149/74 98 Room Air 09/01/16 06:49 76 14 Room Air 09/01/16 04:53 78 20 150/79 96 Room Air 09/01/16 04:27 97.0 71 20 160/79 99 Nasal Cannula 2.0 09/01/16 04:00 78 09/01/16 00:00 98.0 60 20 144/72 96 Nasal Cannula 2.0 09/01/16 00:00 64 08/31/16 21:30 65 139/68 08/31/16 20:23 65 14 Room Air 08/31/16 20:00 97.0 65 18 147/71 98 Room Air 08/31/16 20:00 64 08/31/16 16:00 97.0 65 18 140/74 97 Room Air 18.0 08/31/16 16:00 62 08/31/16 13:30 61 Intake and Output 08/31/16 09/01/16 19:00 07:00 Intake Total 1500 ml 620 ml Output Total 640 ml 500 ml Balance 860 ml 120 ml Intake Oral 1100 ml 120 ml IV Total 400 ml 500 ml Output Urine Total 640 ml 500 ml # Voids 7 1 Laboratory Tests 09/01/16 06:40: White Blood Count 4.3L, Red Blood Count 3.37L, Hemoglobin 11.3L, Hematocrit 31.9L, Mean Corpuscular Volume 95, Mean Corpuscular Hemoglobin 33.7H, Mean Corpuscular Hemoglobin Concent 35.5, Red Cell Distribution Width 10.1L, Platelet Count 246, Mean Platelet Volume 6.7, Neutrophils (%) (Auto) 75.3H, Lymphocytes (%) (Auto) 11.7L, Monocytes (%) (Auto) 11.4H, Eosinophils (%) (Auto ) 1.1, Basophils (%) (Auto) 0.5, Sodium Level 137, Potassium Level 3.6, Chloride Level 95L, Carbon Dioxide Level 25, Anion Gap 17H, Blood Urea Nitrogen 16, Creatinine 1.0, Estimat Glomerular Filtration Rate > 60, Glucose Level 114H , Uric Acid 5.0, Calcium Level 9.0, Phosphorus Level 3.4, Magnesium Level 2.1, Iron Level 91, Total Iron Binding Capacity 167L, Percent Iron Saturation 54H, Unsaturated Iron Binding 76L, Ferritin 1291H, Total Bilirubin 1.0, Gamma Glutamyl Transpeptidase 23, Aspartate Amino Transf (AST/SGOT) 16, Alanine Aminotransferase (ALT/SGPT) 11, Alkaline Phosphatase 59, Total Creatine Kinase 241H, C-Reactive Protein, Quantitative 0.5, Pro-B-Type Natriuretic Peptide 834H , Total Protein 6.7, Albumin 3.6, Globulin 3.1, Albumin/Globulin Ratio 1.1, Vitamin B12 Level 401, Folate [Pending] Height (Feet): 5 Height (Inches): 5.00 Weight (Pounds): 150 General Appearance: no apparent distress, other - stronger Cardiovascular: normal rate Respiratory/Chest: lungs clear Abdomen: soft Neurologic: other - occ dizziness MILLY PENA Sep 01, 2016 12:22
--- NOTE | 2016-09-01 12:38 | Pulmonology Progress Note ---
Assessment/Plan Problems: (1) Hyponatremia (2) Nausea, vomiting, and diarrhea (3) Transplanted kidney Assessment/Plan improving Na normal now Subjective ROS Limited/Unobtainable: No Constitutional: Reports: no symptoms HEENT: Repors: no symptoms Allergies: Coded Allergies: No Known Allergies (Unverified , 08/30/16) Objective Last 24 Hour Vital Signs Date Time Temp Pulse Resp B/P Pulse Ox O2 Delivery O2 Flow Rate FiO2 09/01/16 12:18 97.5 62 15 155/76 97 Room Air 09/01/16 09:04 78 150/79 09/01/16 09:04 78 150/79 09/01/16 08:00 97.2 68 16 149/74 98 Room Air 09/01/16 06:49 76 14 Room Air 09/01/16 04:53 78 20 150/79 96 Room Air 09/01/16 04:27 97.0 71 20 160/79 99 Nasal Cannula 2.0 09/01/16 04:00 78 09/01/16 00:00 98.0 60 20 144/72 96 Nasal Cannula 2.0 09/01/16 00:00 64 08/31/16 21:30 65 139/68 08/31/16 20:23 65 14 Room Air 08/31/16 20:00 97.0 65 18 147/71 98 Room Air 08/31/16 20:00 64 08/31/16 16:00 97.0 65 18 140/74 97 Room Air 18.0 08/31/16 16:00 62 08/31/16 13:30 61 Intake and Output 08/31/16 09/01/16 19:00 07:00 Intake Total 1500 ml 620 ml Output Total 640 ml 500 ml Balance 860 ml 120 ml Intake Oral 1100 ml 120 ml IV Total 400 ml 500 ml Output Urine Total 640 ml 500 ml # Voids 7 1 General Appearance: WD/WN HEENT: normocephalic, atraumatic Respiratory/Chest: chest wall non-tender, lungs clear Cardiovascular: normal peripheral pulses, normal rate Abdomen: normal bowel sounds, soft, non tender Extremities: no cyanosis Skin: no ulcers Microbiology Date/Time Source Procedure Growth Status 08/30/16 17:00 Blood Blood Culture - Preliminary NO GROWTH AFTER 24 HOURS Resulted 08/30/16 17:00 Blood Blood Culture - Preliminary NO GROWTH AFTER 24 HOURS Resulted Laboratory Tests 09/01/16 06:40: White Blood Count 4.3L, Red Blood Count 3.37L, Hemoglobin 11.3L, Hematocrit 31.9L, Mean Corpuscular Volume 95, Mean Corpuscular Hemoglobin 33.7H, Mean Corpuscular Hemoglobin Concent 35.5, Red Cell Distribution Width 10.1L, Platelet Count 246, Mean Platelet Volume 6.7, Neutrophils (%) (Auto) 75.3H, Lymphocytes (%) (Auto) 11.7L, Monocytes (%) (Auto) 11.4H, Eosinophils (%) (Auto ) 1.1, Basophils (%) (Auto) 0.5, Sodium Level 137, Potassium Level 3.6, Chloride Level 95L, Carbon Dioxide Level 25, Anion Gap 17H, Blood Urea Nitrogen 16, Creatinine 1.0, Estimat Glomerular Filtration Rate > 60, Glucose Level 114H , Uric Acid 5.0, Calcium Level 9.0, Phosphorus Level 3.4, Magnesium Level 2.1, Iron Level 91, Total Iron Binding Capacity 167L, Percent Iron Saturation 54H, Unsaturated Iron Binding 76L, Ferritin 1291H, Total Bilirubin 1.0, Gamma Glutamyl Transpeptidase 23, Aspartate Amino Transf (AST/SGOT) 16, Alanine Aminotransferase (ALT/SGPT) 11, Alkaline Phosphatase 59, Total Creatine Kinase 241H, C-Reactive Protein, Quantitative 0.5, Pro-B-Type Natriuretic Peptide 834H , Total Protein 6.7, Albumin 3.6, Globulin 3.1, Albumin/Globulin Ratio 1.1, Vitamin B12 Level 401, Folate [Pending] Current Medications Medications (Trade) Dose Ordered Sig/Brian Route PRN Reason Start Time Stop Time Status Last Admin Dose Admin Acetaminophen (Tylenol) 650 mg Q4H PRN ORAL T>100.5 09/01/16 05:30 10/01/16 05:29 Acetaminophen/ Hydrocodone Bitart ([place] 5/325) 1 tab Q4H PRN ORAL For Pain 09/01/16 05:45 09/08/16 05:44 09/01/16 07:09 Albuterol/ Ipratropium (DuoNeb 0.5-3(2.5)mg/3ml) 3 ml Q4H PRN HHN Shortness of Breath 09/01/16 05:30 09/06/16 05:29 Amlodipine Besylate (Norvasc) 10 mg DAILY ORAL 09/01/16 09:00 10/01/16 08:59 09/01/16 09:04 Aspirin (Ecotrin) 81 mg DAILY ORAL 09/01/16 09:00 10/01/16 08:59 09/01/16 09:04 Brimonidine Tartrate (Alphagan) 1 drop TID BOTH EYES 09/01/16 09:00 10/01/16 08:59 09/01/16 09:11 Clonidine HCl (Catapres) 0.1 mg Q4H PRN ORAL SBP>160 09/01/16 05:30 10/01/16 05:29 Cyclosporine (Neoral) 25 mg BID ORAL 09/01/16 09:00 10/01/16 08:59 09/01/16 09:04 Dextrose (Dextrose 50%) STAT PRN IV Hypoglycemia 09/01/16 05:43 10/01/16 05:42 Gabapentin (Neurontin) 300 mg THREE TIMES A DAY ORAL 09/01/16 09:00 10/01/16 08:59 09/01/16 09:04 Heparin Sodium (Porcine) (Heparin 5000 units/ml) 5,000 units EVERY 12 HOURS SUBQ 09/01/16 09:00 10/01/16 08:59 09/01/16 09:07 Insulin Aspart (NovoLOG) BEFORE MEALS AND HS SUBQ 09/01/16 06:30 10/01/16 06:29 09/01/16 12:02 Latanoprost (Xalatan) 1 drop BEDTIME BOTH EYES 09/01/16 21:00 10/01/16 20:59 Lisinopril (Zestril) 10 mg DAILY ORAL 09/01/16 13:00 10/01/16 12:59 Metoprolol Tartrate (Lopressor) 12.5 mg Q12HR ORAL 09/01/16 09:00 10/01/16 08:59 09/01/16 09:04 Morphine Sulfate (Morphine Sulfate) 2 mg Q4H PRN IVP Severe Pain (Pain Scale 7-10) 09/01/16 05:30 09/08/16 05:29 Mycophenolate Mofetil (Cellcept) 500 mg TWICE A DAY ORAL 09/01/16 09:00 10/01/16 08:59 09/01/16 09:03 Nitroglycerin (Ntg) 0.4 mg Q5M X 3 DOSES PRN SL Prn Chest Pain 09/01/16 05:30 10/01/16 05:29 Ondansetron HCl (Zofran) 4 mg Q6H PRN IVP Nausea & Vomiting 09/01/16 05:46 10/01/16 05:45 09/01/16 07:08 Pantoprazole (Protonix) 40 mg EVERY 12 HOURS IVP 09/01/16 09:00 10/01/16 08:59 09/01/16 09:08 Paroxetine HCl (Paxil) 20 mg DAILY ORAL 09/01/16 09:00 10/01/16 08:59 Polyethylene Glycol (Miralax) 17 gm HSPRN PRN ORAL Constipation 09/01/16 05:47 10/01/16 05:46 Pravastatin Sodium (Pravachol) 10 mg DAILY ORAL 09/01/16 09:00 10/01/16 08:59 09/01/16 09:03 Prednisone (predniSONE) 5 mg DAILY ORAL 09/01/16 09:00 10/01/16 08:59 09/01/16 09:11 Temazepam (Restoril) 15 mg HSPRN PRN ORAL Insomnia 09/01/16 05:42 09/08/16 05:41 Vitamin D (Vitamin D) 1,000 intlu DAILY ORAL 09/01/16 09:00 10/01/16 08:59 09/01/16 09:04 LIVIER MULLINS Sep 01, 2016 12:38
[2016-09-01] MEDS ORDERED: Lisinopril 10mg tab ORAL SCH (13:00)
[2016-09-01 13:48] VITALS: BP 155/76
[2016-09-01] MEDS ORDERED: NaCl 3% 500ml 500 ML IV ONE (20:00)
[2016-09-02] MEDS ORDERED: Lisinopril 10mg tab ORAL SCH (09:00)
--- NOTE | 2016-09-03 13:10 | Discharge Summary ---
Discharge Summary Hospital Course Date of Admission Aug 30, 2016 at 18:22 Date of Discharge Sep 01, 2016 at 15:40 Admitting Diagnosis hyponatremia SHASHI Clemente is a 61 year old male who was admitted on Aug 30, 2016 at 18:22 for Hyponatremia Hospital Course dc summary#[id number] Discharge Medications Continued Medications: Amlodipine Besylate* (Amlodipine Besylate*) 10 Mg Tablet 10 MG ORAL DAILY, TAB Aspirin* (Aspir 81*) 81 Mg Tablet.dr 81 MG ORAL DAILY, TAB Brimonidine Tartrate* (Alphagan*) 5 Ml Drops 1 DROP BOTH EYES TID, ML Cyclosporine (Cyclosporine) 25 Mg Capsule 50 MG PO TWICE A DAY, CAP Ferrous Sulfate* (Ferrous Sulfate*) 325 Mg Tablet 325 MG ORAL THREE TIMES A DAY, #90 TAB 0 Refills Gabapentin* (Gabapentin*) 300 Mg Capsule 300 MG ORAL THREE TIMES A DAY, CAP Hydrocodone Bit/Acetaminophen 5-325* ([place] 5-325 Tablet*) 1 Each Tablet 1 TAB ORAL Q4H PRN for For Pain, TAB Insulin Glargine (Lantus) 100 Unit/1 Ml Insuln.pen 12 SUBQ BEDTIME, #1 EA 0 Refills Insulin Lispro (Humalog) 100 Unit/1 Ml Insuln.pen 0 SUBQ, #1 EA 0 Refills Latanoprost* (Xalatan*) 2.5 Ml Drops 1 DROP BOTH EYES BEDTIME, ML 0 Refills Mycophenolate Mofetil (Mycophenolate Mofetil) 250 Mg Capsule 500 MG PO TWICE A DAY, CAP Omeprazole (Omeprazole) 20 Mg Capsule.dr 20 MG ORAL DAILY, CAP Paroxetine Hcl* (Paxil*) 20 Mg Tablet 20 MG PO DAILY, TAB Potassium Chloride (Potassium Chloride) 20 Meq Packet 20 MEQ ORAL TWICE A DAY, #60 PKT 0 Refills Pravastatin Sod (Pravastatin Sod) 10 Mg Tablet 10 MG ORAL DAILY, TAB Prednisone (Prednisone) 5 Mg Tab.ds.pk 5 MG PO DAILY, PACK Quinapril Hcl (Quinapril Hcl) 20 Mg Tablet 20 MG PO DAILY, TAB Sodium Chloride 5 % (Sodium Chloride) 15 Ml Drops 1 DROP RIGHT EYE TWICE A DAY, ML Discharge Condition Upon Discharge: stable Discharge Disposition Patient was discharged to Home (01) Discharge Diagnoses: Discharge Instructions Discharge Instructions Special Instructions I have been assigned to complete a D/C Summary on this account. I was not involved in the patient management Kerry Rahman NP ([place]) Sep 03, 2016 13:10
--- NOTE | 2016-09-03 22:58 | Discharge Summary 2 SIG ---
DATE OF ADMISSION: 08/30/2016 DATE OF DISCHARGE: 09/01/2016 REASON FOR ADMISSION: The patient is a 61-year-old male, presented to the emergency department with four days of nausea, vomiting and diarrhea. He states that he was not able to take these medications. He denies hematemesis or coffee-grounds emesis. He denies melena in the stool. The diarrhea was watery. He reports abdominal cramping, but not severe. He felt weak. He denied chest pain, shortness of breath, cough, palpitation, or diaphoresis. No extremity pain. No skin rashes. The patient has a history of renal transplant in 2004, transplant was not tender. No flank pain. No urinary symptoms. The patient has history of diabetes, blood sugar was stable at home. Emergency room workup revealed profound severe hyponatremia, sodium was 108. Anion gap was 21. Elevated total indirect bilirubin with normal LFT. Troponin negative. EKG shows normal sinus rhythm. Chest x-ray was negative for any acute cardiopulmonary disease. Renal function was stable. CT of the abdomen and pelvis revealed distended gallbladder. No definite gallstone or wall thickening. Dilated common bile duct, but no definite downstream obstructive lesion. Right pelvic transplant kidney unremarkable. Atrophic osage kidney with multiple cyst. Abdominal x-ray was negative for any acute pathology too. In the emergency department, the patient started on 3% sodium chloride and admitted to the hospital for further management. ADMITTING DIAGNOSES: 1. Acute profound hyponatremia. 2. Intractable nausea, vomiting, and diarrhea. 3. History of a kidney transplant. HOSPITAL STAY: The patient admitted to the hospital. Nephrology consult was requested. The patient was on saline infusion. Sodium in two days up to normal ; 137 on the day of discharge. According to the tipping machine operator automatic, hyponatremia likely depletion , secondary to severe vomiting and diarrhea. No evidence of transplant rejection. Anti-rejection medications were continued. Started on PPI. Antiemetic administered as needed. Blood pressure was controlled with current antihypertensive medication regimen. Blood sugar was managed with sliding scale of insulin and was stable. Patent Attorney followed. Diarrhea resolved. Blood culture were negative. Able to tolerate diet. The patient was stable for discharge. DISCHARGE DIAGNOSES: 1. Acute profound hyponatremia, resolved. 2. Intractable nausea, vomiting, and diarrhea, resolved. 3. History of kidney transplant, -no evidence of rejection. 4. Hypertension,-stable. 5. Diabetes mellitus. 6. Mild anemia, stable. 7. Blindness. DISCHARGE MEDICATIONS: See medication reconciliation list. DISCHARGE INSTRUCTIONS: The patient discharged home follow up with the primary medical doctor. Lynn Charles M.D. I have been assigned to dictate discharge summary on this account and I was not involved in the patient's management. Kerry CarrSt. Catherine Of Siena Medical CenterEffie Young DR: GLORIA JOB#: [id number] CC: AMBER
== END 2016-09-01 15:40 | disposition home or self-care (01) | DRG 425 ==
LOC: ENRESERVTM → ENRESERVDT → EDBD 16:50 → EMR 17:10 → 2E 18:22 → EDBEDREQ 19:31 → 4E 09-01 05:28
DX: E87.1 Hypo-osmolality and hyponatremia (principal); Z94.0 Kidney transplant status; I10 Essential (primary) hypertension; E11.9 Type 2 diabetes mellitus without complications; D64.9 Anemia, unspecified; H54.0 Blindness, both eyes; R11.2 Nausea with vomiting, unspecified; R19.7 Diarrhea, unspecified; Z79.82 Long term (current) use of aspirin; Z79.4 Long term (current) use of insulin; Z79.52 Long term (current) use of systemic steroids; Z79.899 Other long term (current) drug therapy
CPT/HCPCS: 36415; 71010; 74000; 74177; 80053; 80061; 81003; 82248; 82533; 82550; 82607; 82728; 82746; 82962; 82977; 83036; 83540; 83550; 83605; 83690; 83735; 83880; 83930; 84100; 84300; 84443; 84484; 84550; 85025; 85610; 85730; 86140; 87040; 93005; 94664; J1815; J2405

== ENCOUNTER 2017-02-11 12:48 | Observation (INO) | payer MEDICAID, OTHER ==
[~2017-02-11] VITALS: Ht 167.6 cm; Wt 73.0 kg
[~2017-02-11 12:48] MED LIST: AMLODIPINE BESY10 MG ORAL; ASPIR 8181 MG ORAL; BRIMONIDINE TART5 ML BOTH EYES; CYCLOSPORINE25 MG PO; FERROUS SULFAT325 MG ORAL; GABAPENTIN300 MG ORAL; HUMALOG100 UNIT/3 SUBQ; LANTUS SOL100 UNIT/1 SUBQ; LATANOPROST2.5 ML BOTH EYES; MURO RIGHT EYE; MYCOPHENOLATE250 MG PO; NORCO 5-325 TA1 EAC1 ORAL; OMEPRAZOLE20 M2 ORAL; PAROXETINE HCL20 MG PO; POTASSIUM CHLO20 ME2 ORAL; PRAVASTATIN SOD10 M1 ORAL; PREDNISONE5 M4 PO; QUINAPRIL HCL20 MG PO; VITAMIN D1000 UNI1 ORAL
[2017-02-11 12:50] VITALS: BP 156/68
[2017-02-11 13:40] LABS: MEAN CORPUSCULAR HEMOGLOBIN 34.9 PG (27.0-31.0); MEAN CORPUSCULAR VOLUME 100 FL (80-99); MEAN PLATELET VOLUME 5.3 FL (6.5-10.1); PLATELET COUNT 231 K/UL (150-450); RED BLOOD COUNT 3.46 M/UL (4.70-6.10); RED CELL DISTRIBUTION WIDTH 10.3 % (11.6-14.8); WHITE BLOOD COUNT 5.2 K/UL (4.8-10.8)
[2017-02-11] MEDS ORDERED: Tubing IV Cassette IV ONE (13:40)
[2017-02-11 13:45] LABS: PROTHROMBIN TIME 10.3 SEC (9.30-11.50)
[2017-02-11 13:52] LABS: ALANINE AMINOTRANSFERASE 8 U/L (3-41); ANION GAP 16 (5-15); ASPARTATE AMINO TRANSFERASE 11 U/L (5-40); CALCIUM 8.8 mg/dL (8.6-10.2); CARBON DIOXIDE 22 mEQ/L (20-30); CHLORIDE 94 mEQ/L (98-107); CREATININE 1.2 mg/dL (0.7-1.2); GLOMERULAR FILTRATION RATE > 60 mL/min (>60); HEMOLYSIS 6; LIPASE 20 U/L (< 60); POTASSIUM 3.4 mEQ/L (3.4-4.9); SODIUM 132 mEQ/L (135-145); TOTAL PROTEIN 7.3 g/dL (6.6-8.7)
[2017-02-11 14:00] VITALS: BP 167/70
[2017-02-11 14:09] LABS: BAND NEUTROPHILS % (MANUAL) 2 % (0-8); BASOPHILS % (MANUAL) 0 % (0-2); EOSINOPHILS % (MANUAL) 0 % (0-3); HYPOCHROMASIA 1+; LYMPHOCYTES % (MANUAL) 5 % (20-45); MACROCYTES 1+; NEUTROPHILS % (MANUAL) 89 % (45-75); PLATELET ESTIMATE ADEQUATE; PLATELET MORPHOLOGY NORMAL; TOTAL CELLS COUNTED 100
[2017-02-11] MEDS ORDERED: Famotidine 20 MG/ 2ML VIAL IVP ONE (14:15)
[2017-02-11] MEDS ORDERED: Ketorolac 30mg Inj IV ONE (14:15)
--- NOTE | 2017-02-11 15:04 | Emergency Room Report ---
History of Present Illness General Chief Complaint: Generalized Weakness Source: Patient, EMS (MARLENI THORPE D.O.) Present Illness HPI This patient complains of nausea, vomiting and diarrhea that started early this morning. He also has generalized body aches. He denies chest pain or shortness of breath. He denies fever or chills. He denies dysuria or hematuria. He has no other complaints. (MARLENI THORPE D.O.) Allergies: Coded Allergies: No Known Allergies (Unverified , 08/30/16) Patient History Past Medical History: see triage record, DM, HTN, CAD, other - Kidney transplant Social History: Denies: alcohol use, drug use, smoking Reviewed Nursing Documentation: PMH: Agreed, PSxH: Agreed (MARLENI THORPE D.O. ) Nursing Documentation-PMH Hx Cardiac Problems: Yes Hx Hypertension: Yes Hx Pacemaker: No - BLINDNESS Hx Diabetes: Yes Hx Dialysis: No - Kidney transplant 2004 (MARLENI THORPE D.O.) Review of Systems All Other Systems: negative except mentioned in HPI (MARLENI THORPE D.O.) Physical Exam Vital Signs Date Time Temp Pulse Resp B/P Pulse Ox O2 Delivery O2 Flow Rate FiO2 02/11/17 12:46 98.8 75 18 156/68 97 Room Air Sp02 EP Interpretation: reviewed, normal General Appearance: no apparent distress, alert, GCS 15, non-toxic Head: normocephalic, atraumatic Eyes: bilateral eye PERRL, bilateral eye normal inspection ENT: hearing grossly normal, normal pharynx, no angioedema, normal voice Neck: full range of motion, supple/symm/no masses Respiratory: chest non-tender, lungs clear, normal breath sounds, speaking full sentences Cardiovascular #1: regular rate, rhythm, no edema Gastrointestinal: normal bowel sounds, soft, non-distended, no guarding, no rebound, tenderness - mild ttp diffusely Rectal: deferred Musculoskeletal: back normal, gait/station normal, normal range of motion, non- tender Neurologic: alert, oriented x3, responsive, motor strength/tone normal, sensory intact, speech normal Psychiatric: judgement/insight normal, memory normal, mood/affect normal, no suicidal/homicidal ideation Skin: normal color, no rash, warm/dry, well hydrated (MARLENI THORPE D.O.) Medical Decision Making Diagnostic Impression: Primary Impression: Nausea, vomiting, and diarrhea Additional Impression: Transplanted kidney ER Course This patient has a clinical presentation consistent with gastroenteritis. The patient's abdominal exam was benign. I do not suspect cholecystitis, pancreatitis, appendicitis or diverticulitis based on history and physical and laboratory workup. This is likely viral in etiology. The patient continued to feel terrible here in the emergency department. I was concerned that he may become significantly dehydrated given the amount of diarrhea vomiting home. Am also concerned because his transplanted kidney. The patient and are uncomfortable going home. Therefore, she she is admitted for concern of worsening and for further treatment for dehydration. Labs Test 02/11/17 13:10 White Blood Count 5.2 K/UL (4.8-10.8) Red Blood Count 3.46 M/UL (4.70-6.10) Hemoglobin 12.1 G/DL (14.2-18.0) Hematocrit 34.5 % (42.0-52.0) Mean Corpuscular Volume 100 FL (80-99) Mean Corpuscular Hemoglobin 34.9 PG (27.0-31.0) Mean Corpuscular Hemoglobin Concent 35.0 G/DL (32.0-36.0) Red Cell Distribution Width 10.3 % (11.6-14.8) Platelet Count 231 K/UL (150-450) Mean Platelet Volume 5.3 FL (6.5-10.1) Neutrophils (%) (Auto) % (45.0-75.0) Lymphocytes (%) (Auto) % (20.0-45.0) Monocytes (%) (Auto) % (1.0-10.0) Eosinophils (%) (Auto) % (0.0-3.0) Basophils (%) (Auto) % (0.0-2.0) Differential Total Cells Counted 100 Neutrophils % (Manual) 89 % (45-75) Lymphocytes % (Manual) 5 % (20-45) Monocytes % (Manual) 4 % (1-10) Eosinophils % (Manual) 0 % (0-3) Basophils % (Manual) 0 % (0-2) Band Neutrophils 2 % (0-8) Platelet Estimate Adequate Platelet Morphology Normal Red Blood Cell Morphology Hypochromasia 1+ Macrocytosis 1+ Prothrombin Time 10.3 SEC (9.30-11.50) Prothromb Time International Ratio 1.0 (0.9-1.1) Activated Partial Thromboplast Time 31 SEC (23-33) Sodium Level 132 mEQ/L (135-145) Potassium Level 3.4 mEQ/L (3.4-4.9) Chloride Level 94 mEQ/L (98-107) Carbon Dioxide Level 22 mEQ/L (20-30) Anion Gap 16 (5-15) Blood Urea Nitrogen 16 mg/dL (7-23) Creatinine 1.2 mg/dL (0.7-1.2) Estimat Glomerular Filtration Rate > 60 mL/min (>60) Glucose Level 206 mg/dL (74-106) Calcium Level 8.8 mg/dL (8.6-10.2) Total Bilirubin 0.7 mg/dL (0.0-1.2) Aspartate Amino Transf (AST/SGOT) 11 U/L (5-40) Alanine Aminotransferase (ALT/SGPT) 8 U/L (3-41) Alkaline Phosphatase 61 U/L (40-129) Total Protein 7.3 g/dL (6.6-8.7) Albumin 3.8 g/dL (3.5-5.2) Globulin 3.5 g/dL Albumin/Globulin Ratio 1.0 (1.0-2.7) Lipase 20 U/L (< 60) (MARLENI THORPE.Domenico) ER Course Patient presented for abdominal pain. Differential diagnoses included ischemic bowel, appendicitis, perforated viscus, abdominal aortic aneurysm, inferior myocardial infarction, viral gastroenteritis Because of complexity of patient's case laboratory testing and imaging studies were ordered. The patient started on IV fluids. Differential was noted to have evidence hyponatremia bandemia. Patient is on immunosuppressive medication Dr. Chau was contacted for inpatient observation Labs Test 02/11/17 13:10 02/11/17 16:30 White Blood Count 5.2 K/UL (4.8-10.8) Red Blood Count 3.46 M/UL (4.70-6.10) Hemoglobin 12.1 G/DL (14.2-18.0) Hematocrit 34.5 % (42.0-52.0) Mean Corpuscular Volume 100 FL (80-99) Mean Corpuscular Hemoglobin 34.9 PG (27.0-31.0) Mean Corpuscular Hemoglobin Concent 35.0 G/DL (32.0-36.0) Red Cell Distribution Width 10.3 % (11.6-14.8) Platelet Count 231 K/UL (150-450) Mean Platelet Volume 5.3 FL (6.5-10.1) Neutrophils (%) (Auto) % (45.0-75.0) Lymphocytes (%) (Auto) % (20.0-45.0) Monocytes (%) (Auto) % (1.0-10.0) Eosinophils (%) (Auto) % (0.0-3.0) Basophils (%) (Auto) % (0.0-2.0) Differential Total Cells Counted 100 Neutrophils % (Manual) 89 % (45-75) Lymphocytes % (Manual) 5 % (20-45) Monocytes % (Manual) 4 % (1-10) Eosinophils % (Manual) 0 % (0-3) Basophils % (Manual) 0 % (0-2) Band Neutrophils 2 % (0-8) Platelet Estimate Adequate Platelet Morphology Normal Red Blood Cell Morphology Hypochromasia 1+ Macrocytosis 1+ Prothrombin Time 10.3 SEC (9.30-11.50) Prothromb Time International Ratio 1.0 (0.9-1.1) Activated Partial Thromboplast Time 31 SEC (23-33) Sodium Level 132 mEQ/L (135-145) Potassium Level 3.4 mEQ/L (3.4-4.9) Chloride Level 94 mEQ/L (98-107) Carbon Dioxide Level 22 mEQ/L (20-30) Anion Gap 16 (5-15) Blood Urea Nitrogen 16 mg/dL (7-23) Creatinine 1.2 mg/dL (0.7-1.2) Estimat Glomerular Filtration Rate > 60 mL/min (>60) Glucose Level 206 mg/dL (74-106) Calcium Level 8.8 mg/dL (8.6-10.2) Total Bilirubin 0.7 mg/dL (0.0-1.2) Aspartate Amino Transf (AST/SGOT) 11 U/L (5-40) Alanine Aminotransferase (ALT/SGPT) 8 U/L (3-41) Alkaline Phosphatase 61 U/L (40-129) Total Protein 7.3 g/dL (6.6-8.7) Albumin 3.8 g/dL (3.5-5.2) Globulin 3.5 g/dL Albumin/Globulin Ratio 1.0 (1.0-2.7) Lipase 20 U/L (< 60) Urine Color Pale yellow Urine Appearance Clear Urine pH 7 (4.5-8.0) Urine Specific [place] 1.005 (1.005-1.035) Urine Protein 2+ (NEGATIVE) Urine Glucose (UA) 2+ (NEGATIVE) Urine Ketones Negative (NEGATIVE) Urine Occult Blood Negative (NEGATIVE) Urine Nitrite Negative (NEGATIVE) Urine Bilirubin Negative (NEGATIVE) Urine Urobilinogen Normal MG/DL (0.0-1.0) Urine Leukocyte Esterase 1+ (NEGATIVE) Urine RBC 0-2 /HPF (0 - 0) Urine WBC 2-4 /HPF (0 - 0) Urine Squamous Epithelial Cells None /LPF (NONE/OCC) Urine Amorphous Sediment Few /LPF (NONE) Urine Bacteria Few /HPF (NONE) (Marcio Barnes) EKG Diagnostic Results Rate: normal ST Segments: no acute changes (MARLENI THORPE D.O.) Rate: normal Rhythm: NSR ST Segments: no acute changes (Marcio Barnes) Rhythm Strip Diag. Results EP Interpretation: yes Rate: 70's Rhythm: NSR, no PVC's, no ectopy (MARLENI THORPE D.O.) Last Vital Signs Date Time Temp Pulse Resp B/P Pulse Ox O2 Delivery O2 Flow Rate FiO2 02/11/17 12:50 98.8 75 18 156/68 97 Room Air (MARLENI THORPE D.O.) Status: unchanged (Marcio Barnes) Disposition: PLACE IN OBSERVATION Condition: Serious Referrals: [facility],REFERRING (PCP) MARLENI THORPE D.O. Feb 11, 2017 15:04 Marcio Barnes Feb 11, 2017 21:38
[2017-02-11 16:00] VITALS: BP 161/73
[2017-02-11 16:56] LABS: APPEARANCE,URINE CLEAR; KETONES,URINE NEGATIVE (NEGATIVE); LEUKOCYTE ESTERASE ,URINE 1+ (NEGATIVE); NITRITE,URINE NEGATIVE (NEGATIVE); PH,URINE 7 (4.5-8.0); PROTEIN,URINE 2+ (NEGATIVE); UROBILINOGEN,URINE NORMAL MG/DL (0.0-1.0)
[2017-02-11 16:58] LABS: AMORPHOUS SEDIMENT,UR FEW /LPF; BACTERIA,URINE FEW /HPF; RBC,URINE 0-2 /HPF (0 - 0)
[2017-02-11 18:00] VITALS: BP 166/70
[2017-02-11 19:47] VITALS: BP 158/76
[2017-02-11] MEDS ORDERED: D5 1/2NS w/KCl 20mEq 1,000 ML IV SCH (22:30)
[2017-02-11 23:00] VITALS: BP 177/87
[2017-02-11] MEDS ORDERED: Morphine Sulfate 2mg/ml Inj IVP ONE (23:00)
[2017-02-12 00:19] VITALS: BP 146/77
[2017-02-12 00:52] VITALS: BP 168/85
[2017-02-12] MEDS ORDERED: Morphine Sulfate 2mg/ml Inj IVP ONE (01:00)
[2017-02-12 03:54] VITALS: BP 183/97
[2017-02-12 08:15] VITALS: BP 139/74
--- NOTE | 2017-02-12 10:07 | Diagnostic Imaging Report ---
Indication: PAIN Technique: Spiral acquisitions obtained through the abdomen and pelvis. No oral contrast utilized, per emergency room physician request No IV contrast utilized, per emergency physician request.. Multiplanar reconstructions were generated. Total dose length product 578 mGycm. CTDIvol(s) 11 mGy. Dose reduction achieved using automated exposure control Comparison: 08/30/2016 Findings: The appendix is normal. There is no evidence of diverticulosis or diverticulitis. No small bowel distention. No free or loculated intraperitoneal air or fluid. Distal esophagus, stomach, duodenum are unremarkable. Apparent mild gastric wall thickening is probably artifact of under distention. Lack of IV contrast limits assessment of the solid organs. The gallbladder is distended. There are no stones or wall thickening or pericholecystic inflammation. The common bile duct is dilated, measuring 15 mm diameter. This is also evident previously. The pancreas is unremarkable. There are a few accessory splenules. The [place] kidneys are atrophic, demonstrate innumerable subcentimeter low-attenuation lesions which are too small characterize. The adrenals are unremarkable. No retroperitoneal or mesenteric mass or adenopathy. Right iliac fossa transplant kidney is again demonstrated, demonstrates mild hydronephrosis and hydroureter which is minimally increased from the previous exam. The bladder is distended. The bones are somewhat osteoporotic. Old healed right 10th rib fracture deformity is noted. Surgical hardware is seen reducing of left hip intertrochanteric fracture. There are mild degenerative changes of the lumbosacral spine. Mild L1 wedge deformity is unchanged. Prior exam, allowing for differences in exam technique, no significant interim change The lung bases demonstrate an irregular 12 mm diameter opacity, which appears unchanged from the earlier study. Impression: Mild hydronephrosis and hydroureter of right iliac fossa transplant kidney, new/increased since prior study. No definite downstream obstructive lesion, possibly on the basis of bladder distention, occult mild ureteral obstruction not excludable. Correlate with clinical and laboratory findings No acute process otherwise Stable dilated common bile duct, without definite downstream obstructive lesion. Likely on the basis of senescent change. Correlate with liver function tests Atrophic [place] kidneys, consistent with chronic renal disease Irregular 12 mm diameter opacity the right lung base. Stable, most likely an area of scarring. Additional short interval followup CT is recommended in 6 months Subcentimeter low-attenuation kidney lesions, too small to characterize, most likely benign simple cysts. No further followup necessary Other findings as noted, including osteoporotic change, stable mild L1 wedge deformity, posttraumatic and postsurgical changes of left hip This agrees with the preliminary interpretation provided overnight by [facility]. The CT scanner at [facility] is accredited by the [employer] and the scans are performed using protocols designed to limit radiation exposure to as low as reasonably achievable to attain images of sufficient resolution adequate for diagnostic evaluation.
[2017-02-12] MEDS ORDERED: NS 275ml ONE (12:37)
--- NOTE | 2017-02-12 17:45 | History and Physical Report ---
DATE OF ADMISSION: 02/11/2017 HISTORY OF PRESENT ILLNESS: This is a 62-year-old male with a previous history of renal transplantation and blindness. He came to the hospital with vomiting and diarrhea. The patient states he had a similar problem several days ago at which time he was seen and then discharged. He again came with similar problems. The patient says he was unable to even take his medicines at all because of nausea and vomiting. He also reported diarrhea. He also reported generalized body aches. PAST MEDICAL HISTORY: Notable for renal transplant, diabetes mellitus, hypertension, and CAD. Previous history as discussed above. SOCIAL HISTORY: He lives at home with family. HOME MEDICATIONS: Summarized in chart. REVIEW OF SYSTEMS: The patient denies any headaches, hematemesis, melena, hematochezia, night sweats, or weight loss. PHYSICAL EXAMINATION: GENERAL: Reveals a 62-year-old male. HEENT: Unremarkable. The patient has very poor vision. RESPIRATORY: Clear breath sounds bilaterally. ABDOMEN: Soft. EXTREMITIES: There is no edema. NEUROLOGIC: Nonfocal. LABORATORY DATA: Notable for white count 5.2, hemoglobin 12.1, and platelet count is normal. Chemistries is notable for sodium 132 and creatinine is 1.2. Coags are normal. Urinalysis is negative. IMAGING STUDIES: The patient underwent CT of the abdomen and pelvis yesterday, which showed atrophic upper [place] kidney with a transplanted kidney in place. Bile ducts were normal. IMPRESSION: 1. Renal transplant recipient. 2. Diabetes mellitus. 3. Hypertension. 4. 01:50. DISCUSSION: The patient is doing better this morning and time. He is able to tolerate his diet and resumed his home medications. At this point, the patient will be transferred to [facility] for continuity of care. We will follow as lens dotter. Frederic Chau M.D. DR: THUY JOB#: [id number] CC:
== END 2017-02-12 12:38 ==
LOC: ENRESERVDT → ENRESERVTM → EDBD 12:48 → EMR 13:18 → INTOOBSV 20:15 → 4E 20:15 → EDBEDREQ 22:10
DX: K52.9 Noninfective gastroenteritis and colitis, unspecified (principal); R53.1 Weakness; I10 Essential (primary) hypertension; E11.9 Type 2 diabetes mellitus without complications; I25.10 Atherosclerotic heart disease of native coronary artery without angina pectoris; Z95.0 Presence of cardiac pacemaker; Z94.0 Kidney transplant status
CPT/HCPCS: 36415; 74176; 80053; 81003; 82962; 83690; 85007; 85025; 85610; 85730; 93005; 96360; 96374; 99285; G0378; J1885; J2270; J2405; J7050; S0028; 96365

== ENCOUNTER 2017-12-06 15:40 | Emergency (ER) | payer OTHER ==
[~2017-12-06] VITALS: Ht 170.2 cm; Wt 72.6 kg
[2017-12-06 14:28] VITALS: BP 132/84
[2017-12-06 14:51] LABS: BASOPHILS % (AUTO) 0.7 % (0.0-2.0); HEMATOCRIT 28.9 % (42.0-52.0); HEMOGLOBIN 9.7 G/DL (14.2-18.0); LYMPHOCYTES % (AUTO) 15.8 % (20.0-45.0); MEAN CORPUSCULAR VOLUME 95 FL (80-99); NEUTROPHILS % (AUTO) 76.4 % (45.0-75.0); PLATELET COUNT 250 K/UL (150-450); RED BLOOD COUNT 3.03 M/UL (4.70-6.10); RED CELL DISTRIBUTION WIDTH 14.1 % (11.6-14.8); WHITE BLOOD COUNT 5.6 K/UL (4.8-10.8)
[2017-12-06 14:53] LABS: APPEARANCE,URINE CLEAR; BILIRUBIN, URINE NEGATIVE (NEGATIVE); COLOR,URINE PALE YELLOW; GLUCOSE, URINE (UA) NEGATIVE (NEGATIVE); KETONES,URINE NEGATIVE (NEGATIVE); LEUKOCYTE ESTERASE ,URINE NEGATIVE (NEGATIVE); NITRITE,URINE NEGATIVE (NEGATIVE); PH,URINE 5 (4.5-8.0); PROTEIN,URINE NEGATIVE (NEGATIVE); UROBILINOGEN,URINE NORMAL MG/DL (0.0-1.0)
[2017-12-06 15:08] LABS: ANION GAP 14 mmol/L (5-15); BLOOD UREA NITROGEN 32 mg/dL (7-18); CALCIUM 8.6 MG/DL (8.5-10.1); CARBON DIOXIDE 17 MMOL/L (21-32); CHLORIDE 106 MMOL/L (98-107); CREATININE 1.3 MG/DL (0.55-1.30); POTASSIUM 4.6 MMOL/L (3.5-5.1); SODIUM 137 MMOL/L (136-145)
[2017-12-06 15:19] LABS: ALANINE AMINOTRANSFERASE 16 U/L (12-78); ALBUMIN 3.1 G/DL (3.4-5.0); ALBUMIN/GLOBULIN RATIO 0.7 (1.0-2.7); ALKALINE PHOSPHATASE 75 U/L (46-116); ASPARTATE AMINO TRANSFERASE 10 U/L (15-37); BILIRUBIN,TOTAL 0.6 MG/DL (0.2-1.0)
--- NOTE | 2017-12-06 15:29 | Emergency Room Report ---
History of Present Illness General Chief Complaint: Abnormal Labs Source: Patient, Medical Record Present Illness HPI 62-year-old male presents ED for evaluation. Patient sent in for abnormal labs. Noted to have low hemoglobin and hematocrit. Patient resides in a snf facility. Upon arrival patient also complaining of abdominal pain. Unable to tell me when the pain started. Pain is dull, 7 out of 10, nonradiating. Has G-tube. Denies chest pain or shortness of breath. Denies fevers chills. Denies nausea or vomiting. No other aggravating or relieving factors. Denies any other associated symptoms Allergies: Coded Allergies: METOCLOPRAMIDE (Unverified Allergy, Unknown, 12/06/17) Patient History Past Surgical History: none Pertinent Family History: none Social History: Denies: smoking, alcohol use, drug use Immunizations: UTD Reviewed Nursing Documentation: PMH: Agreed; PSxH: Agreed Nursing Documentation-PM Hx Cardiac Problems: Yes Hx Hypertension: Yes Hx Pacemaker: No - BLINDNESS Hx Diabetes: Yes Hx Dialysis: No - Kidney transplant 2004 Hx Weakness: Yes Review of Systems All Other Systems: negative except mentioned in HPI Physical Exam Vital Signs Date Time Temp Pulse Resp B/P (MAP) Pulse Ox O2 Delivery O2 Flow Rate FiO2 12/06/17 13:58 98.0 73 20 132/84 99 Room Air 98.1 Sp02 EP Interpretation: reviewed, normal General Appearance: no apparent distress, alert, GCS 15, non-toxic Head: normocephalic, atraumatic Eyes: bilateral eye normal inspection, bilateral eye PERRL ENT: hearing grossly normal, normal pharynx, no angioedema, normal voice Neck: full range of motion, supple/symm/no masses Respiratory: chest non-tender, lungs clear, normal breath sounds, speaking full sentences Cardiovascular #1: regular rate, rhythm, no edema Cardiovascular #2: 2+ carotid (R), 2+ carotid (L), 2+ radial (R), 2+ radial (L) , 2+ dorsalis pedis (R), 2+ dorsalis pedis (L) Gastrointestinal: normal bowel sounds, soft, no guarding, no rebound, other - ventral hernia. Gtube Rectal: deferred Genitourinary: normal inspection, no CVA tenderness Musculoskeletal: back normal, gait/station normal, normal range of motion, non- tender Neurologic: alert, oriented x3, responsive, motor strength/tone normal, sensory intact, speech normal Psychiatric: judgement/insight normal, memory normal, mood/affect normal, no suicidal/homicidal ideation Reflexes: 3+ bicep (R), 3+ bicep (L), 3+ tricep (R), 3+ tricep (L), 3+ knee (R) , 3+ knee (L) Skin: normal color, no rash, warm/dry, well hydrated Lymphatic: no adenopathy Medical Decision Making Diagnostic Impression: Primary Impression: Anemia Qualified Codes: D64.9 - Anemia, unspecified Additional Impression: Hernia ER Course Hospital Course 62-year-old M presents to ED with abdominal pain, for low hb/hct Differential diagnosis includes-appendicitis, cholecystitis, small bowel obstruction, gastritis, Clinical course Patient placed on stretcher. After initial history and physical I ordered labs , IV fluids, pain medications and CT scan Labs - no leukocytosis, hb/hct stable, electrolytes ok CT scan shows epigastric hernia containing sigmoid colon. no incarceation, no strangulation Discussed findings with PMD Dr. Alvarado; he agrees that patient can be safely discharged back to SNF I feel this is a highly complex case requiring extensive working including EKG/ Rhythm strip, Xray/CT/US, Blood/urine lab work, repeat exams while in ED, and administration of strong opiates/narcotics for pain control, admission to hospital or close patient follow up. Diagnosis - anemia, abd pain Stable and discharged to SNF. Followup with PMD. Return to ED if symptoms recur or worsen Labs Test 12/06/17 14:31 12/06/17 14:39 White Blood Count 5.6 K/UL (4.8-10.8) Red Blood Count 3.03 M/UL (4.70-6.10) Hemoglobin 9.7 G/DL (14.2-18.0) Hematocrit 28.9 % (42.0-52.0) Mean Corpuscular Volume 95 FL (80-99) Mean Corpuscular Hemoglobin 31.9 PG (27.0-31.0) Mean Corpuscular Hemoglobin Concent 33.5 G/DL (32.0-36.0) Red Cell Distribution Width 14.1 % (11.6-14.8) Platelet Count 250 K/UL (150-450) Mean Platelet Volume 7.3 FL (6.5-10.1) Neutrophils (%) (Auto) 76.4 % (45.0-75.0) Lymphocytes (%) (Auto) 15.8 % (20.0-45.0) Monocytes (%) (Auto) 6.0 % (1.0-10.0) Eosinophils (%) (Auto) 1.0 % (0.0-3.0) Basophils (%) (Auto) 0.7 % (0.0-2.0) Prothrombin Time 10.0 SEC (9.30-11.50) Prothromb Time International Ratio 1.0 (0.9-1.1) Activated Partial Thromboplast Time 27 SEC (23-33) Sodium Level 137 MMOL/L (136-145) Potassium Level 4.6 MMOL/L (3.5-5.1) Chloride Level 106 MMOL/L (98-107) Carbon Dioxide Level 17 MMOL/L (21-32) Anion Gap 14 mmol/L (5-15) Blood Urea Nitrogen 32 mg/dL (7-18) Creatinine 1.3 MG/DL (0.55-1.30) Estimat Glomerular Filtration Rate 56.1 mL/min (>60) Glucose Level 211 MG/DL (74-106) Calcium Level 8.6 MG/DL (8.5-10.1) Total Bilirubin 0.6 MG/DL (0.2-1.0) Aspartate Amino Transf (AST/SGOT) 10 U/L (15-37) Alanine Aminotransferase (ALT/SGPT) 16 U/L (12-78) Alkaline Phosphatase 75 U/L (46-116) Total Protein 7.5 G/DL (6.4-8.2) Albumin 3.1 G/DL (3.4-5.0) Globulin 4.4 g/dL Albumin/Globulin Ratio 0.7 (1.0-2.7) Lipase 220 U/L (73-393) Urine Color Pale yellow Urine Appearance Clear Urine pH 5 (4.5-8.0) Urine Specific [place] 1.010 (1.005-1.035) Urine Protein Negative (NEGATIVE) Urine Glucose (UA) Negative (NEGATIVE) Urine Ketones Negative (NEGATIVE) Urine Occult Blood Negative (NEGATIVE) Urine Nitrite Negative (NEGATIVE) Urine Bilirubin Negative (NEGATIVE) Urine Urobilinogen Normal MG/DL (0.0-1.0) Urine Leukocyte Esterase Negative (NEGATIVE) Last Vital Signs Date Time Temp Pulse Resp B/P (MAP) Pulse Ox O2 Delivery O2 Flow Rate FiO2 12/06/17 14:28 98.1 82 20 132/84 99 Room Air 98.1 Status: improved Disposition: [facility] Condition: Stable Roverto Veloz MD Dec 06, 2017 15:29
[~2017-12-06 15:40] MED LIST changes: +CLOPIDOGREL75 MG ORAL; +HYDRALAZINE HCL25 M1 ORAL; +Isovue-300 100ml vial INJ PRN; +METOPROLOL TAR100 M1 ORAL; +PANTOPRAZOLE SO40 MG ORAL; +Sodium Chloride 500ML 500 ML IV ONE; +TRUSOPT10 ML BOTH EYES; +ZOFRAN4 M3 ORAL
--- NOTE | 2017-12-06 16:26 | Diagnostic Imaging Report ---
Indication: Abdominal pain Technique: Continuous helical transaxial imaging of the abdomen and pelvis was obtained from the lung bases to the pubic symphysis during intravenous contrast administration. Coronal 2-D reformats were also obtained. Study obtained in a Siemens sensation [address] Automatic Exposure Control was utilized. Total Dose length Product (DLP): 556.[address] Dose Index Volume (CTDIvol): 10.08 mGy Comparison: 02/11/2017 Findings: There is streaky linear density at the right lung base which may be scarring or atelectasis. There is no airspace disease identified. Moderate coronary and aortic calcifications are present. Small hiatal hernia is present. The gallbladder is unremarkable. Gastrostomy is present in good position. There is a midline anterior abdominal wall hernia just right of an adjacent to the gastrostomy. The hernia contains a portion of the colon. There is no obstruction proximal to this. Hernia measures about 6 cm in transverse diameter and was not seen on the previous occasion. This should be a palpable hernia. The [place] kidneys are atrophic and nonfunctional consistent with end-stage renal disease. There is a transplanted kidney in the right iliac fossa. The urinary bladder is unremarkable in appearance. Small left inguinal hernia containing fat noted. Old pelvic fractures noted bilaterally with old fractures of the pubis and left hip. A left hip femoral pins are noted. Bones are osteopenic. There are extensive vascular calcifications involving small vessels and medium-sized vessels including the aorta as well. There is moderate stool retention in the colon. There is no free fluid or free air identified or evidence of bowel obstruction. The appendix is not definitely seen. There are no secondary signs of acute appendicitis. IMPRESSION: Epigastric hernia containing a small portion of the sigmoid colon. The hernia is 6 cm in size does not appear to be associated with bowel obstruction. Recommend clinical correlation. Incarceration is not excludable on the basis of imaging. Gastrostomy noted. Right iliac fossa renal allograft. Atherosclerotic disease. Small vessel calcifications likely associated with end-stage renal disease. Moderate stool Right basilar scarring versus atelectasis. Small left inguinal hernia containing fat Evidence of previous old pelvic trauma The CT scanner at [facility] is accredited by the [employer] and the scans are performed using dose optimization techniques as appropriate to a performed exam including Automatic Exposure control.
[2017-12-06 17:29] VITALS: BP 124/80
[2017-12-06 17:53] VITALS: BP 124/80
== END 2017-12-06 18:07 ==
LOC: EMR 15:42 → CANBEDREQ 16:32 → EMR 18:07
DX: D64.9 Anemia, unspecified (principal); K43.9 Ventral hernia without obstruction or gangrene; K40.90 Unilateral inguinal hernia, without obstruction or gangrene, not specified as recurrent; I10 Essential (primary) hypertension; E11.9 Type 2 diabetes mellitus without complications; Z94.0 Kidney transplant status; H54.7 Unspecified visual loss; Z93.1 Gastrostomy status
CPT/HCPCS: 36415; 74177; 80053; 81003; 83690; 85025; 85610; 85730; 86850; 86900; 86901; 99285; Q9967

== ENCOUNTER 2017-12-06 19:45 | Inpatient (IN) | payer OTHER ==
[~2017-12-06] VITALS: Ht 170.2 cm; Wt 72.6 kg
[~2017-12-06 19:45] MED LIST changes: -Isovue-300 100ml vial INJ PRN; -Sodium Chloride 500ML 500 ML IV ONE
[2017-12-06 20:20] VITALS: BP 141/62
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
[2017-12-06 22:05] VITALS: BP 138/68
[2017-12-06 22:50] VITALS: BP 139/72
[2017-12-07] VITALS: BP 139/76
[2017-12-07 04:00] VITALS: BP 143/76
[2017-12-07] MEDS: Acetaminophen 500mg (ES) tab ORAL PRN ×2 (04:16→08:50)
[2017-12-07] MEDS ORDERED: HydrALAZINE 25mg tab ORAL SCH (06:00)
[2017-12-07] MEDS ORDERED: NovoLOG Insulin Flexpen SUBQ SCH (06:30)
[2017-12-07] MEDS: NovoLOG Insulin Flexpen SUBQ SCH ×4 (06:30→21:30)
[2017-12-07 08:00] VITALS: BP 101/46
[2017-12-07 08:13] LABS: BASOPHILS % (AUTO) 1.6 % (0.0-2.0); EOSINOPHILS % (AUTO) 2.1 % (0.0-3.0); HEMATOCRIT 27.2 % (42.0-52.0); LYMPHOCYTES % (AUTO) 32.7 % (20.0-45.0); MEAN CORPUSCULAR VOLUME 94 FL (80-99); MONOCYTES % (AUTO) 9.1 % (1.0-10.0); NEUTROPHILS % (AUTO) 54.4 % (45.0-75.0); PLATELET COUNT 228 K/UL (150-450); RED BLOOD COUNT 2.87 M/UL (4.70-6.10); RED CELL DISTRIBUTION WIDTH 13.7 % (11.6-14.8); WHITE BLOOD COUNT 4.1 K/UL (4.8-10.8)
[2017-12-07 08:41] LABS: ALANINE AMINOTRANSFERASE 12 U/L (12-78); ALBUMIN 2.8 G/DL (3.4-5.0); ALBUMIN/GLOBULIN RATIO 0.7 (1.0-2.7); ALKALINE PHOSPHATASE 66 U/L (46-116); ANION GAP 12 mmol/L (5-15); ASPARTATE AMINO TRANSFERASE 6 U/L (15-37); BILIRUBIN,TOTAL 0.7 MG/DL (0.2-1.0); BLOOD UREA NITROGEN 23 mg/dL (7-18); CALCIUM 8.3 MG/DL (8.5-10.1); CARBON DIOXIDE 19 MMOL/L (21-32); CHLORIDE 109 MMOL/L (98-107); CREATININE 1.1 MG/DL (0.55-1.30); POTASSIUM 3.8 MMOL/L (3.5-5.1); SODIUM 139 MMOL/L (136-145)
[2017-12-07] MEDS: Mycophenolate 250mg cap ORAL SCH ×2 (08:49→17:17)
[2017-12-07] MEDS: cycloSPORINE 25mg cap ORAL SCH ×2 (09:00→17:17)
[2017-12-07] MEDS: Dorzolamide 2% 10ml Btl BOTH EYES SCH ×2 (09:22→17:22)
--- NOTE | 2017-12-07 10:30 | General Progress Note ---
Assessment/Plan Problem List: (1) Transplanted kidney ICD Codes: Z94.0 - Kidney transplant status SNOMED: 65016093, 576902223 (2) Anemia ICD Codes: D64.9 - Anemia, unspecified SNOMED: 793709576 (3) Hernia ICD Codes: K46.9 - Unspecified abdominal hernia without obstruction or gangrene SNOMED: 73584273 (4) Diabetes mellitus ICD Codes: E11.9 - Type 2 diabetes mellitus without complications SNOMED: 12133714 Assessment/Plan GT removed no shower for 24 hours fu labs Diabetes control fu H&H Subjective ROS Limited/Unobtainable: Yes Allergies: Coded Allergies: METOCLOPRAMIDE (Unverified Allergy, Unknown, 12/06/17) Subjective no abd pain wants the GT removed Objective Last 24 Hour Vital Signs Date Time Temp Pulse Resp B/P (MAP) Pulse Ox O2 Delivery O2 Flow Rate FiO2 12/07/17 08:50 98.0 12/07/17 08:43 77 101/46 12/07/17 08:42 77 101/46 12/07/17 08:00 98.0 77 19 101/46 97 98.0 12/07/17 08:00 Room Air 12/07/17 05:27 139/76 12/07/17 05:15 97.5 12/07/17 04:16 97.5 12/07/17 04:00 97.7 75 18 143/76 98 97.7 12/07/17 00:00 97.5 75 17 139/76 98 Room Air 97.5 12/06/17 23:15 98.0 88 15 139/72 100 Room Air 98.0 12/06/17 22:50 98.0 88 15 139/72 100 Room Air 98.0 12/06/17 22:05 74 17 138/68 99 Room Air 12/06/17 20:20 97.8 76 16 141/62 98 Room Air 97.8 12/06/17 19:47 76 18 136/64 100 Room Air Intake and Output 12/06/17 12/07/17 19:00 07:00 Intake Total 1240 ml Output Total 1250 ml Balance -10 ml Intake Oral 240 ml IV Total 1000 ml Output Urine Total 1250 ml # Bowel Movements 1 Laboratory Tests 12/07/17 07:45: White Blood Count 4.1L, Red Blood Count 2.87L, Hemoglobin 9.0L, Hematocrit 27.2L , Mean Corpuscular Volume 94, Mean Corpuscular Hemoglobin 31.2H, Mean Corpuscular Hemoglobin Concent 33.0, Red Cell Distribution Width 13.7, Platelet Count 228, Mean Platelet Volume 7.1, Neutrophils (%) (Auto) 54.4, Lymphocytes (% ) (Auto) 32.7, Monocytes (%) (Auto) 9.1, Eosinophils (%) (Auto) 2.1, Basophils ( %) (Auto) 1.6, Sodium Level 139, Potassium Level 3.8, Chloride Level 109H, Carbon Dioxide Level 19L, Anion Gap 12, Blood Urea Nitrogen 23H, Creatinine 1.1 , Estimat Glomerular Filtration Rate > 60, Glucose Level 143H, Hemoglobin A1c 7.0H, Calcium Level 8.3L, Total Bilirubin 0.7, Aspartate Amino Transf (AST/SGOT ) 6L, Alanine Aminotransferase (ALT/SGPT) 12, Alkaline Phosphatase 66, Total Protein 6.9, Albumin 2.8L, Globulin 4.1, Albumin/Globulin Ratio 0.7L Height (Feet): 5 Height (Inches): 7.00 Weight (Pounds): 160 General Appearance: alert EENT: normal ENT inspection Neck: supple Cardiovascular: normal rate Respiratory/Chest: decreased breath sounds Abdomen: normal bowel sounds, non tender, soft Extremities: non-tender Rico Jerez MD Dec 07, 2017 10:30
[2017-12-07 12:00] VITALS: BP 100/60
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
[2017-12-07] MEDS: HydrALAZINE 25mg tab ORAL SCH ×2 (13:58→22:00)
[2017-12-07] MEDS: Brimonidine 0.2% Opth Sol BOTH EYES SCH ×2 (13:59→22:50)
[2017-12-07] MEDS: Norco 5mg/325mg tab ORAL PRN (14:01)
[2017-12-07 16:00] VITALS: BP 95/57
[2017-12-07 20:22] VITALS: BP 97/65
--- NOTE | 2017-12-07 21:01 | History and Physical Report ---
DATE OF ADMISSION: 12/06/2017 REASON FOR ADMISSION: Abdominal pain, anemia, and azotemia as well. HISTORY OF PRESENT ILLNESS: The patient came in. The patient has been complaining of abdominal pain. Imaging study that was ordered in the facility showed possible ileus. The patient also had anemia and was admitted for those reasons. The patient was complaining of abdominal pain for days. Denies nausea, vomiting, diarrhea. Denies shortness of breath. Denies cough. Denies orthopnea. Denies chest pain. PAST MEDICAL HISTORY: Significant for history of atrial fibrillation, history of hypertension, history of diabetes, history of weakness, hernia, anemia, GERD, NIDDM, hyperlipidemia, psychosis, neuropathy, glaucoma, depression. PAST SURGICAL HISTORY: Kidney transplant and PEG. ALLERGIES: Reglan. MEDICATIONS: Alphagan, Plavix, insulin, hydralazine, metoprolol, Xalatan, Protonix, Paxil, Pravachol, prednisone. FAMILY HISTORY: Noncontributory. SOCIAL HISTORY: Denies history of alcohol or illicit drugs. Denies history of smoking. Comes from a long-term. REVIEW OF SYSTEMS: HEENT: Denies headaches. RESPIRATORY: Denies shortness of breath. Denies cough. CARDIOVASCULAR: Denies chest pain. Denies orthopnea. GASTROINTESTINAL: Reports abdominal pain and nausea for the past couple of days. EXTREMITIES: Denies pain. CENTRAL NERVOUS SYSTEM: No change in vision or speech pattern. Generalized weakness. PHYSICAL EXAMINATION: VITAL SIGNS: Temperature 98, pulse 77, blood pressure 101/46. HEENT: PERRLA. NECK: Supple. No lymphadenopathy. CHEST: Clear to auscultation. CARDIOVASCULAR: Regular rate and rhythm. GASTROINTESTINAL: G-tube site is intact. He has mild tenderness throughout, but however, abdomen is soft. positive bowel sounds. EXTREMITIES: No edema. NEUROLOGIC: Reflexes are equal on both sides. Generalized weakness. LABORATORY DATA: WBC of 4.1, hemoglobin 9, platelets 228,000. Sodium 139, potassium 3.8, BUN of 22, creatinine 1.1. ASSESSMENT AND PLAN: 1. Abdominal pain, rule out ileus. 2. Borderline anemia and azotemia. I have asked Dr. Gupta and Dr. Jerez to see the patient for above-mentioned diagnoses and treatment. Ali Nina Alvarado DR: Uziel JOB#: [id number] CC:
[2017-12-08] VITALS: BP 100/57
[2017-12-08 04:00] VITALS: BP 136/79
[2017-12-08] MEDS: HydrALAZINE 25mg tab ORAL SCH ×3 (06:03→21:25)
[2017-12-08] MEDS: Norco 5mg/325mg tab ORAL PRN ×3 (06:04→18:24)
[2017-12-08] MEDS: Brimonidine 0.2% Opth Sol BOTH EYES SCH ×3 (06:06→21:16)
[2017-12-08] MEDS: NovoLOG Insulin Flexpen SUBQ SCH ×4 (06:09→20:34)
[2017-12-08 07:29] LABS: APPEARANCE,URINE CLEAR; BILIRUBIN, URINE NEGATIVE (NEGATIVE); GLUCOSE, URINE (UA) NEGATIVE (NEGATIVE); KETONES,URINE NEGATIVE (NEGATIVE); LEUKOCYTE ESTERASE ,URINE NEGATIVE (NEGATIVE); NITRITE,URINE NEGATIVE (NEGATIVE); PH,URINE 5 (4.5-8.0); PROTEIN,URINE 1+ (NEGATIVE); UROBILINOGEN,URINE NORMAL MG/DL (0.0-1.0)
[2017-12-08 07:34] LABS: COLOR,URINE YELLOW
[2017-12-08 08:00] VITALS: BP 102/64
[2017-12-08 08:36] LABS: HEMATOCRIT 26.7 % (42.0-52.0); HEMOGLOBIN 9.2 G/DL (14.2-18.0); MEAN CORPUSCULAR VOLUME 94 FL (80-99); PLATELET COUNT 224 K/UL (150-450); RED BLOOD COUNT 2.83 M/UL (4.70-6.10); RED CELL DISTRIBUTION WIDTH 13.7 % (11.6-14.8); WHITE BLOOD COUNT 3.2 K/UL (4.8-10.8)
[2017-12-08] MEDS: Mycophenolate 250mg cap ORAL SCH ×2 (08:40→17:33)
[2017-12-08] MEDS: Dorzolamide 2% 10ml Btl BOTH EYES SCH ×2 (08:40→17:32)
[2017-12-08] MEDS: cycloSPORINE 25mg cap ORAL SCH ×2 (08:43→17:10)
[2017-12-08 08:58] LABS: ALANINE AMINOTRANSFERASE 11 U/L (12-78); ALBUMIN 2.9 G/DL (3.4-5.0); ALBUMIN/GLOBULIN RATIO 0.7 (1.0-2.7); ALKALINE PHOSPHATASE 71 U/L (46-116); ANION GAP 13 mmol/L (5-15); ASPARTATE AMINO TRANSFERASE 7 U/L (15-37); BILIRUBIN,TOTAL 0.6 MG/DL (0.2-1.0); BLOOD UREA NITROGEN 27 mg/dL (7-18); CALCIUM 8.5 MG/DL (8.5-10.1); CARBON DIOXIDE 19 MMOL/L (21-32); CHLORIDE 108 MMOL/L (98-107); CHOLESTEROL 132 MG/DL (< 200); CREATINE KINASE 28 U/L (26-308); CREATININE 1.3 MG/DL (0.55-1.30); FERRITIN 1544 NG/ML (8-388); GAMMA GLUTAMYL TRANSPEPTIDASE 29 U/L (5-85); HDL CHOLESTEROL 41 MG/DL (40-60); PHOSPHORUS 4.1 MG/DL (2.5-4.9); POTASSIUM 4.3 MMOL/L (3.5-5.1); SODIUM 140 MMOL/L (136-145); TRIGLYCERIDES 184 MG/DL (30-150)
--- NOTE | 2017-12-08 08:58 | General Progress Note ---
Assessment/Plan Problem List: (1) Transplanted kidney ICD Codes: Z94.0 - Kidney transplant status SNOMED: 47507950, 751408681 (2) Anemia ICD Codes: D64.9 - Anemia, unspecified SNOMED: 376313073 Qualifiers: Qualified Codes: D64.9 - Anemia, unspecified (3) Hernia ICD Codes: K46.9 - Unspecified abdominal hernia without obstruction or gangrene SNOMED: 80483671 (4) Diabetes mellitus ICD Codes: E11.9 - Type 2 diabetes mellitus without complications SNOMED: 15451417 Assessment/Plan GT removed yesterday fu labs Diabetes control fu H&H anemia work up CT reviewed Subjective Allergies: Coded Allergies: METOCLOPRAMIDE (Unverified Allergy, Unknown, 12/06/17) Subjective no event Objective Last 24 Hour Vital Signs Date Time Temp Pulse Resp B/P (MAP) Pulse Ox O2 Delivery O2 Flow Rate FiO2 12/08/17 08:43 77 102/64 12/08/17 08:43 77 102/64 12/08/17 08:00 96.8 77 18 102/64 98 Room Air 96.8 12/08/17 08:00 96.8 77 18 102/64 98 Room Air 96.8 12/08/17 07:03 97.1 12/08/17 06:04 97.1 12/08/17 06:03 135/77 12/08/17 04:00 97.1 64 18 136/79 99 Room Air 97.1 12/08/17 00:00 97.9 78 18 100/57 99 Room Air 97.9 12/07/17 22:00 99/63 12/07/17 21:00 75 98/59 12/07/17 20:22 98.1 74 16 97/65 99 Room Air 98.1 12/07/17 16:00 Room Air 12/07/17 16:00 98.0 71 20 95/57 95 98.0 12/07/17 14:01 97.5 12/07/17 13:58 106/82 12/07/17 12:00 Room Air 12/07/17 12:00 97.5 75 20 100/60 100 97.5 12/07/17 09:49 98.0 Intake and Output 12/07/17 12/08/17 19:00 07:00 Intake Total 360 ml Balance 360 ml Intake Oral 360 ml # Voids 2 3 # Bowel Movements 2 Laboratory Tests 12/08/17 06:00: Urine Color Yellow, Urine Appearance Clear, Urine pH 5, Urine Specific [place] 1.015, Urine Protein 1+H, Urine Glucose (UA) Negative, Urine Ketones Negative, Urine Occult Blood Negative, Urine Nitrite Negative, Urine Bilirubin Negative, Urine Urobilinogen Normal, Urine Leukocyte Esterase Negative, Urine RBC 0, Urine WBC 0-2, Urine Squamous Epithelial Cells Few, Urine Bacteria Few, Urine Random Sodium 59 12/08/17 06:30: White Blood Count 3.2L, Red Blood Count 2.83L, Hemoglobin 9.2L, Hematocrit 26.7L , Mean Corpuscular Volume 94, Mean Corpuscular Hemoglobin 32.6H, Mean Corpuscular Hemoglobin Concent 34.5, Red Cell Distribution Width 13.7, Platelet Count 224, Mean Platelet Volume 6.9, Neutrophils (%) (Auto) , Lymphocytes (%) ( Auto) , Monocytes (%) (Auto) , Eosinophils (%) (Auto) , Basophils (%) (Auto) , Neutrophils % (Manual) [Pending], Lymphocytes % (Manual) [Pending], Platelet Estimate [Pending], Platelet Morphology [Pending], Sodium Level [Pending], Potassium Level [Pending], Chloride Level [Pending], Carbon Dioxide Level [ Pending], Blood Urea Nitrogen [Pending], Creatinine [Pending], Estimat Glomerular Filtration Rate [Pending], Glucose Level [Pending], Hemoglobin A1c [ Pending], Uric Acid [Pending], Calcium Level [Pending], Phosphorus Level [ Pending], Magnesium Level [Pending], Iron Level [Pending], Unsaturated Iron Binding [Pending], Ferritin [Pending], Total Bilirubin [Pending], Gamma Glutamyl Transpeptidase [Pending], Aspartate Amino Transf (AST/SGOT) [Pending], Alanine Aminotransferase (ALT/SGPT) [Pending], Alkaline Phosphatase [Pending], Total Creatine Kinase [Pending], Pro-B-Type Natriuretic Peptide [Pending], Total Protein [Pending], Albumin [Pending], Globulin [Pending], Triglycerides Level [Pending], Cholesterol Level [Pending], LDL Cholesterol [Pending], HDL Cholesterol [Pending], Cholesterol/HDL Ratio [Pending], Vitamin B12 Level [ Pending], Folate [Pending], Thyroid Stimulating Hormone (TSH) [Pending] Height (Feet): 5 Height (Inches): 7.00 Weight (Pounds): 160 General Appearance: alert EENT: normal ENT inspection Neck: supple Cardiovascular: normal rate Respiratory/Chest: lungs clear Abdomen: normal bowel sounds, non tender, soft Extremities: non-tender Rico Jerez MD Dec 08, 2017 08:58
[2017-12-08 09:53] LABS: % IRON SATURATION 60 % (15-50); IRON 82 ug/dL (50-175); TOTAL IRON BINDING CAPACITY 136 ug/dL (250-450)
[2017-12-08 12:00] VITALS: BP 121/68
--- NOTE | 2017-12-08 15:58 | Nephrology Progress Note ---
Assessment/Plan Assessment (1) Transplanted kidney ICD Codes: Z94.0 - Kidney transplant status (2) Anemia ICD Codes: D64.9 - Anemia, unspecified (3) Hernia ICD Codes: K46.9 - Unspecified abdominal hernia without obstruction or gangrene (4) Diabetes mellitus ICD Codes: E11.9 - Type 2 diabetes mellitus without complications Plan saline bollous GT removed no shower for 24 hours fu labs Diabetes control fu H&H continue anti rejection meds no renal issue Subjective ROS Limited/Unobtainable: No Constitutional: Reports: malaise Objective Objective Last 24 Hour Vital Signs Date Time Temp Pulse Resp B/P (MAP) Pulse Ox O2 Delivery O2 Flow Rate FiO2 12/08/17 13:50 121/68 12/08/17 13:10 96.8 12/08/17 12:11 96.8 12/08/17 12:00 97.1 72 18 121/68 98 Room Air 97.1 12/08/17 08:43 77 102/64 12/08/17 08:43 77 102/64 12/08/17 08:00 96.8 77 18 102/64 98 Room Air 96.8 12/08/17 08:00 96.8 77 18 102/64 98 Room Air 96.8 12/08/17 06:04 97.1 12/08/17 06:03 135/77 12/08/17 04:00 97.1 64 18 136/79 99 Room Air 97.1 12/08/17 00:00 97.9 78 18 100/57 99 Room Air 97.9 12/07/17 22:00 99/63 12/07/17 21:00 75 98/59 12/07/17 20:22 98.1 74 16 97/65 99 Room Air 98.1 12/07/17 16:00 Room Air 12/07/17 16:00 98.0 71 20 95/57 95 98.0 Intake and Output 12/07/17 12/08/17 19:00 07:00 Intake Total 360 ml Balance 360 ml Intake Oral 360 ml # Voids 2 3 # Bowel Movements 2 Laboratory Tests 12/08/17 06:00: Urine Color Yellow, Urine Appearance Clear, Urine pH 5, Urine Specific [place] 1.015, Urine Protein 1+H, Urine Glucose (UA) Negative, Urine Ketones Negative, Urine Occult Blood Negative, Urine Nitrite Negative, Urine Bilirubin Negative, Urine Urobilinogen Normal, Urine Leukocyte Esterase Negative, Urine RBC 0, Urine WBC 0-2, Urine Squamous Epithelial Cells Few, Urine Bacteria Few, Urine Random Sodium 59 12/08/17 06:30: White Blood Count 3.2L, Red Blood Count 2.83L, Hemoglobin 9.2L, Hematocrit 26.7L , Mean Corpuscular Volume 94, Mean Corpuscular Hemoglobin 32.6H, Mean Corpuscular Hemoglobin Concent 34.5, Red Cell Distribution Width 13.7, Platelet Count 224, Mean Platelet Volume 6.9, Neutrophils (%) (Auto) , Lymphocytes (%) ( Auto) , Monocytes (%) (Auto) , Eosinophils (%) (Auto) , Basophils (%) (Auto) , Differential Total Cells Counted 100, Neutrophils % (Manual) 55, Lymphocytes % ( Manual) 37, Monocytes % (Manual) 8, Eosinophils % (Manual) 0, Basophils % ( Manual) 0, Band Neutrophils 0, Platelet Estimate Adequate, Platelet Morphology Normal, Hypochromasia 1+, Sodium Level 140, Potassium Level 4.3, Chloride Level 108H, Carbon Dioxide Level 19L, Anion Gap 13, Blood Urea Nitrogen 27H, Creatinine 1.3, Estimat Glomerular Filtration Rate 56.1, Glucose Level 161H, Hemoglobin A1c 7.1H, Uric Acid 9.1H, Calcium Level 8.5, Phosphorus Level 4.1, Magnesium Level 2.3, Iron Level 82, Total Iron Binding Capacity 136L, Percent Iron Saturation 60H, Unsaturated Iron Binding 54L, Ferritin 1544H, Total Bilirubin 0.6, Gamma Glutamyl Transpeptidase 29, Aspartate Amino Transf (AST/ SGOT) 7L, Alanine Aminotransferase (ALT/SGPT) 11L, Alkaline Phosphatase 71, Total Creatine Kinase 28, Pro-B-Type Natriuretic Peptide 1809H, Total Protein 7.0, Albumin 2.9L, Globulin 4.1, Albumin/Globulin Ratio 0.7L, Triglycerides Level 184H, Cholesterol Level 132, LDL Cholesterol 70, HDL Cholesterol 41, Cholesterol/HDL Ratio 3.2L, Vitamin B12 Level 310, Folate 9.8, Thyroid Stimulating Hormone (TSH) 1.783 Height (Feet): 5 Height (Inches): 7.00 Weight (Pounds): 160 General Appearance: no apparent distress Abdomen: soft FOULADIAN,MILLY Dec 08, 2017 15:58
[2017-12-08 16:00] VITALS: BP 138/80
[2017-12-08] MEDS ORDERED: Sodium Chloride 500ML 500 ML IV ONE (16:00)
--- NOTE | 2017-12-08 16:21 | General Progress Note ---
Assessment/Plan Problem List: (1) Gastroenteritis ICD Codes: K52.9 - Noninfective gastroenteritis and colitis, unspecified SNOMED: 46387548 (2) Anemia ICD Codes: D64.9 - Anemia, unspecified SNOMED: 808295976 Qualifiers: Qualified Codes: D64.9 - Anemia, unspecified (3) Abdominal pain ICD Codes: R10.9 - Unspecified abdominal pain SNOMED: 10105959 Qualifiers: Qualified Codes: R10.9 - Unspecified abdominal pain Status: progressing Assessment/Plan afebrile abdominal pain no nausea reviewed chart na labs no diarrhea Subjective ROS Limited/Unobtainable: Yes Constitutional: Reports: no symptoms Allergies: Coded Allergies: METOCLOPRAMIDE (Unverified Allergy, Unknown, 12/06/17) Objective Last 24 Hour Vital Signs Date Time Temp Pulse Resp B/P (MAP) Pulse Ox O2 Delivery O2 Flow Rate FiO2 12/08/17 13:50 121/68 12/08/17 13:10 96.8 12/08/17 12:11 96.8 12/08/17 12:00 97.1 72 18 121/68 98 Room Air 97.1 12/08/17 08:43 77 102/64 12/08/17 08:43 77 102/64 12/08/17 08:00 96.8 77 18 102/64 98 Room Air 96.8 12/08/17 08:00 96.8 77 18 102/64 98 Room Air 96.8 12/08/17 06:04 97.1 12/08/17 06:03 135/77 12/08/17 04:00 97.1 64 18 136/79 99 Room Air 97.1 12/08/17 00:00 97.9 78 18 100/57 99 Room Air 97.9 12/07/17 22:00 99/63 12/07/17 21:00 75 98/59 12/07/17 20:22 98.1 74 16 97/65 99 Room Air 98.1 Intake and Output 12/07/17 12/08/17 19:00 07:00 Intake Total 360 ml Balance 360 ml Intake Oral 360 ml # Voids 2 3 # Bowel Movements 2 Laboratory Tests 12/08/17 06:00: Urine Color Yellow, Urine Appearance Clear, Urine pH 5, Urine Specific [place] 1.015, Urine Protein 1+H, Urine Glucose (UA) Negative, Urine Ketones Negative, Urine Occult Blood Negative, Urine Nitrite Negative, Urine Bilirubin Negative, Urine Urobilinogen Normal, Urine Leukocyte Esterase Negative, Urine RBC 0, Urine WBC 0-2, Urine Squamous Epithelial Cells Few, Urine Bacteria Few, Urine Random Sodium 59 12/08/17 06:30: White Blood Count 3.2L, Red Blood Count 2.83L, Hemoglobin 9.2L, Hematocrit 26.7L , Mean Corpuscular Volume 94, Mean Corpuscular Hemoglobin 32.6H, Mean Corpuscular Hemoglobin Concent 34.5, Red Cell Distribution Width 13.7, Platelet Count 224, Mean Platelet Volume 6.9, Neutrophils (%) (Auto) , Lymphocytes (%) ( Auto) , Monocytes (%) (Auto) , Eosinophils (%) (Auto) , Basophils (%) (Auto) , Differential Total Cells Counted 100, Neutrophils % (Manual) 55, Lymphocytes % ( Manual) 37, Monocytes % (Manual) 8, Eosinophils % (Manual) 0, Basophils % ( Manual) 0, Band Neutrophils 0, Platelet Estimate Adequate, Platelet Morphology Normal, Hypochromasia 1+, Sodium Level 140, Potassium Level 4.3, Chloride Level 108H, Carbon Dioxide Level 19L, Anion Gap 13, Blood Urea Nitrogen 27H, Creatinine 1.3, Estimat Glomerular Filtration Rate 56.1, Glucose Level 161H, Hemoglobin A1c 7.1H, Uric Acid 9.1H, Calcium Level 8.5, Phosphorus Level 4.1, Magnesium Level 2.3, Iron Level 82, Total Iron Binding Capacity 136L, Percent Iron Saturation 60H, Unsaturated Iron Binding 54L, Ferritin 1544H, Total Bilirubin 0.6, Gamma Glutamyl Transpeptidase 29, Aspartate Amino Transf (AST/ SGOT) 7L, Alanine Aminotransferase (ALT/SGPT) 11L, Alkaline Phosphatase 71, Total Creatine Kinase 28, Pro-B-Type Natriuretic Peptide 1809H, Total Protein 7.0, Albumin 2.9L, Globulin 4.1, Albumin/Globulin Ratio 0.7L, Triglycerides Level 184H, Cholesterol Level 132, LDL Cholesterol 70, HDL Cholesterol 41, Cholesterol/HDL Ratio 3.2L, Vitamin B12 Level 310, Folate 9.8, Thyroid Stimulating Hormone (TSH) 1.783 Height (Feet): 5 Height (Inches): 7.00 Weight (Pounds): 160 Cardiovascular: normal rate Respiratory/Chest: lungs clear Abdomen: soft Chan Alvarado MD Dec 08, 2017 16:21
[2017-12-08 20:00] VITALS: BP 136/78
[2017-12-09] VITALS: BP 120/80
[2017-12-09] MEDS: Norco 5mg/325mg tab ORAL PRN ×3 (00:51→12:55)
[2017-12-09 04:00] VITALS: BP 126/82
[2017-12-09] MEDS: Brimonidine 0.2% Opth Sol BOTH EYES SCH ×2 (05:00→14:00)
[2017-12-09] MEDS: HydrALAZINE 25mg tab ORAL SCH ×2 (05:09→14:00)
[2017-12-09] MEDS: NovoLOG Insulin Flexpen SUBQ SCH ×2 (05:10→11:25)
[2017-12-09 07:54] LABS: HEMATOCRIT 27.2 % (42.0-52.0); HEMOGLOBIN 8.9 G/DL (14.2-18.0); MEAN CORPUSCULAR VOLUME 95 FL (80-99); PLATELET COUNT 218 K/UL (150-450); RED BLOOD COUNT 2.85 M/UL (4.70-6.10); RED CELL DISTRIBUTION WIDTH 13.9 % (11.6-14.8); WHITE BLOOD COUNT 3.3 K/UL (4.8-10.8)
[2017-12-09 08:00] VITALS: BP 115/62
[2017-12-09] MEDS: Mycophenolate 250mg cap ORAL SCH (08:24)
[2017-12-09] MEDS: cycloSPORINE 25mg cap ORAL SCH (08:25)
[2017-12-09] MEDS: Dorzolamide 2% 10ml Btl BOTH EYES SCH (08:26)
[2017-12-09 08:47] LABS: % IRON SATURATION 51 % (15-50); ALANINE AMINOTRANSFERASE 11 U/L (12-78); ALBUMIN 2.9 G/DL (3.4-5.0); ALBUMIN/GLOBULIN RATIO 0.7 (1.0-2.7); ALKALINE PHOSPHATASE 70 U/L (46-116); ANION GAP 12 mmol/L (5-15); ASPARTATE AMINO TRANSFERASE 5 U/L (15-37); BILIRUBIN,TOTAL 0.5 MG/DL (0.2-1.0); BLOOD UREA NITROGEN 23 mg/dL (7-18); CALCIUM 8.6 MG/DL (8.5-10.1); CARBON DIOXIDE 19 MMOL/L (21-32); CHLORIDE 107 MMOL/L (98-107); CREATININE 1.2 MG/DL (0.55-1.30); IRON 67 ug/dL (50-175); POTASSIUM 4.6 MMOL/L (3.5-5.1); SODIUM 138 MMOL/L (136-145); TOTAL IRON BINDING CAPACITY 131 ug/dL (250-450)
--- NOTE | 2017-12-09 11:08 | GI Progress Note ---
Assessment/Plan Problems: (1) PEG (percutaneous endoscopic gastrostomy) adjustment/replacement/removal ICD Codes: Z43.1 - Encounter for attention to gastrostomy SNOMED: 014942315, 285306125 (2) Abdominal pain ICD Codes: R10.9 - Unspecified abdominal pain SNOMED: 74910467 Qualifiers: Qualified Codes: R10.9 - Unspecified abdominal pain (3) Gastroenteritis ICD Codes: K52.9 - Noninfective gastroenteritis and colitis, unspecified SNOMED: 08968895 (4) Hernia ICD Codes: K46.9 - Unspecified abdominal hernia without obstruction or gangrene SNOMED: 88205748 (5) Diabetes mellitus ICD Codes: E11.9 - Type 2 diabetes mellitus without complications SNOMED: 61142395 Status: stable Status Narrative Discussed with Dr. Jerez. Assessment/Plan GT removed >> healing well anemia work up reviewed tolerating diet diabetes control fu H&H CT reviewed fu labs Subjective Gastrointestinal/Abdominal: Reports: no symptoms Objective Last 24 Hour Vital Signs Date Time Temp Pulse Resp B/P (MAP) Pulse Ox O2 Delivery O2 Flow Rate FiO2 12/09/17 08:31 97.5 12/09/17 08:24 84 115/62 12/09/17 08:23 84 115/62 12/09/17 08:00 97.5 84 19 115/62 100 97.5 12/09/17 07:32 97.9 12/09/17 05:09 109/70 12/09/17 04:00 97.4 80 18 126/82 98 Room Air 97.4 12/09/17 00:51 97.9 12/09/17 00:00 97.8 84 18 120/80 98 Room Air 97.8 12/08/17 21:25 127/72 12/08/17 21:00 85 127/72 12/08/17 20:00 79.0 80 18 136/78 98 Room Air 79.0 12/08/17 18:24 97.9 12/08/17 16:00 97.9 81 18 138/80 98 Room Air 97.9 12/08/17 13:50 121/68 12/08/17 12:11 96.8 12/08/17 12:00 97.1 72 18 121/68 98 Room Air 97.1 Intake and Output 12/08/17 12/09/17 19:00 07:00 Intake Total 1839 ml 400 ml Output Total 700 ml 850 ml Balance 1139 ml -450 ml Intake Oral 840 ml 400 ml IV Total 999 ml Output Urine Total 700 ml 850 ml Laboratory Tests Test 12/09/17 06:35 White Blood Count 3.3 K/UL (4.8-10.8) L Red Blood Count 2.85 M/UL (4.70-6.10) L Hemoglobin 8.9 G/DL (14.2-18.0) L Hematocrit 27.2 % (42.0-52.0) L Mean Corpuscular Volume 95 FL (80-99) Mean Corpuscular Hemoglobin 31.2 PG (27.0-31.0) H Mean Corpuscular Hemoglobin Concent 32.7 G/DL (32.0-36.0) Red Cell Distribution Width 13.9 % (11.6-14.8) Platelet Count 218 K/UL (150-450) Mean Platelet Volume 6.9 FL (6.5-10.1) Neutrophils (%) (Auto) % (45.0-75.0) Lymphocytes (%) (Auto) % (20.0-45.0) Monocytes (%) (Auto) % (1.0-10.0) Eosinophils (%) (Auto) % (0.0-3.0) Basophils (%) (Auto) % (0.0-2.0) Differential Total Cells Counted 100 Neutrophils % (Manual) 55 % (45-75) Lymphocytes % (Manual) 38 % (20-45) Monocytes % (Manual) 6 % (1-10) Eosinophils % (Manual) 1 % (0-3) Basophils % (Manual) 0 % (0-2) Band Neutrophils 0 % (0-8) Platelet Estimate Adequate Platelet Morphology Normal Hypochromasia 1+ Sodium Level 138 MMOL/L (136-145) Potassium Level 4.6 MMOL/L (3.5-5.1) Chloride Level 107 MMOL/L (98-107) Carbon Dioxide Level 19 MMOL/L (21-32) L Anion Gap 12 mmol/L (5-15) Blood Urea Nitrogen 23 mg/dL (7-18) H Creatinine 1.2 MG/DL (0.55-1.30) Estimat Glomerular Filtration Rate > 60 mL/min (>60) Glucose Level 151 MG/DL (74-106) H Calcium Level 8.6 MG/DL (8.5-10.1) Iron Level 67 ug/dL (50-175) Total Iron Binding Capacity 131 ug/dL (250-450) L Percent Iron Saturation 51 % (15-50) H Unsaturated Iron Binding 64 ug/dL (112-346) L Total Bilirubin 0.5 MG/DL (0.2-1.0) Aspartate Amino Transf (AST/SGOT) 5 U/L (15-37) L Alanine Aminotransferase (ALT/SGPT) 11 U/L (12-78) L Alkaline Phosphatase 70 U/L (46-116) Total Protein 7.0 G/DL (6.4-8.2) Albumin 2.9 G/DL (3.4-5.0) L Globulin 4.1 g/dL Albumin/Globulin Ratio 0.7 (1.0-2.7) L Carcinoembryonic Antigen Pending Height (Feet): 5 Height (Inches): 7.00 Weight (Pounds): 160 General Appearance: WD/WN, no apparent distress, alert Cardiovascular: normal rate Respiratory/Chest: normal breath sounds, no respiratory distress Abdominal Exam: normal bowel sounds, non tender, soft, GT site - scabbed, non bleeding Extremities: normal range of motion, non-tender Brittani Painting NP Dec 09, 2017 11:08
[2017-12-09 12:00] VITALS: BP 128/74
[2017-12-09] MEDS ORDERED: NS 500ML ONE (13:39)
--- NOTE | 2017-12-11 08:38 | Discharge Summary ---
Discharge Summary Discharge Summary _ DATE OF ADMISSION: 12/06/2017 DATE OF DISCHARGE: 12/09/2017 REASON FOR ADMISSION: 62 years old male with past medical history significant for kidney transplant in 2004, hypertension, diabetes, glaucoma, presented to emergency room for evaluation. Patient seen earlier that day for anemia and abdominal pain and was transferred back to [facility] facility. However en route, patient declined to go back to nursing facility and wanted to go home. CT scan revealed reducible epigastric hernia. Upon evaluation laboratory workup revealed anemia with hemoglobin 9.0 hematocrit 27.2, no leukocytosis . Stable vital signs, stable electrolytes and renal parameters. Patient admitted with diagnosis of anemia, abdominal pain, hernia , diabetes mellitus, transplanted kidney. CONSULTANTS: GI specialist Dr. Jerez errand runner Dr. Gupta [facility] COURSE: Patient admitted to medical surgical floor. GI and nephrology consults were requested. Patient had G-tube, but was on oral diet at this time. Intake was sufficient. GI seen and evaluated patient. Patient subsequently undergone PEG removal. Patient was on the IV hydration, no shower for 24 hours. Stoma was healing well. GI prophylaxis provided. Pain management provided as needed, and pain was controlled. Anemia workup revealed stable hemoglobin and hematocrit, stable B12 and folate levels. Hemoglobin and hematocrit were closely monitored, remained stable, no significant trend down. Consider outpatient GI procedure. Patient was able to tolerate diet. Abdominal pain resolved. No nausea, no vomiting. Abdominal Pain was possibly due to gastroenteritis. CT scan of abdomen was unremarkable, with evidence of reducible epigastric hernia. No incarceration, no strangulation. Blood sugar was managed with sliding scale of insulin, remained stable. Hemoglobin A1c -7.0. [employer] Stamping [employer] Operator closely followed. Renal parameters and electrolytes were closely monitored. Nephrotoxins were avoided. Renal parameters remained stable. No renal issues as per errand runner. Antirejection medications were continued. Abdominal pain resolved No nausea, no vomiting ,no diarrhea. Patient was stable for discharge home to family FINAL DIAGNOSES: Abdominal pain Gastrostomy tube , status post removal Epigastric hernia ,reducible Anemia Transplanted kidney status Diabetes mellitus Possible gastroenteritis DISCHARGE MEDICATIONS: See Medication Reconciliation list. DISCHARGE INSTRUCTIONS: Patient was discharged home. Follow up with primary care provide. I have been assigned to dictate discharge summary for this account. I was not involved in the patient's management. Kerry Rahman NP Dec 11, 2017 08:38
== END 2017-12-09 13:40 | disposition home or self-care (01) | DRG 222 ==
LOC: EDBD 19:45 → EDUNIT# 19:45 → EMR 20:03 → 4W 21:32 → EDBEDREQ 21:59
PROC: 0DP67UZ Removal of Feeding Device from Stomach, Via Natural or Artificial Opening (ICD-10-PCS; principal; 2017-12-07)
DX: K52.9 Noninfective gastroenteritis and colitis, unspecified (principal); Z94.0 Kidney transplant status; I10 Essential (primary) hypertension; Z43.1 Encounter for attention to gastrostomy; D64.9 Anemia, unspecified; E11.9 Type 2 diabetes mellitus without complications; K46.9 Unspecified abdominal hernia without obstruction or gangrene; K21.9 Gastro-esophageal reflux disease without esophagitis; Z79.4 Long term (current) use of insulin; Z79.02 Long term (current) use of antithrombotics/antiplatelets
CPT/HCPCS: 36415; 80053; 80061; 81001; 82378; 82550; 82607; 82728; 82746; 82962; 82977; 83036; 83540; 83550; 83735; 83880; 84100; 84300; 84443; 84550; 85007; 85025; 93970; 99285; J1815